=== PATIENT | male | born 1980 | race Caucasian/White ===

== ENCOUNTER 2020-08-23 07:19 | Observation (INO) ==
[2020-08-23] MEDS ORDERED: LORazepam 2 MG/4 ML VIAL IV STA ×3 (07:42→10:45)
[2020-08-23] MEDS ORDERED: MULTI-VITAMIN INFUSION 10 ML, THIAMINE HCL 100 MG, FOLIC ACID 1 MG in SODIUM CHLORIDE 0... IV ONE (07:42)
--- NOTE | 2020-08-23 07:48 | Emergency Department Note ---
Impression & Plan Pneumonia, Alcohol withdrawal syndrome ED Provider Note CHIEF COMPLAINT: Alcohol withdrawal HISTORY OF PRESENTING ILLNESS: This is a 39-year-old male who presents to the emergency department by private vehicle with complaint of alcohol withdrawal that started last night. Patient states that he has been shaking and was up all night vomiting. The patient was evaluated here yesterday and was noted to have an elevated alcohol level at that time of 464.1 mg/dL, and was also diagnosed with pneumonia at that time. Patient states they recommended he be admitted yesterday, but he did not want to stay, so he left against medical advice. He states that he "stopped drinking cold turkey" and he began to start feeling withdrawal symptoms late last evening. He reports his last drink was yesterday morning. He notes that he has a history of alcohol abuse but had been sober for about 3-1/2 years, he recently started drinking again about 3 weeks ago. He attributes his recent drinking to stress from the holidays and seeing frequent ads on TV about alcohol. He also reports a history of narcotic addiction and is on Suboxone, he has not missed any doses of his Suboxone. He denies any pain and rates his pain level 0/10. He denies chest pain, shortness of breath, abdominal pain, back pain, diarrhea, urinary complaints, numbness/tingling or weakness of the extremities. He was discharged home with Levaquin for the pneumonia and Librium. He states he tried to take the Librium, but he was vomiting and could not keep it down. REVIEW OF SYSTEMS: A complete 10 point review of systems was reviewed with the patient with pertinent positives and negatives as per [facility]. All else were negative. PAST MEDICAL HISTORY: History of alcohol abuse, history of narcotic addiction on Suboxone SOCIAL HISTORY: Lives at home, he is a current everyday smoker, history of alcoh ol and narcotic abuse ALLERGIES: No known allergies PHYSICAL EXAM: CONSTITUTIONAL: Alert, pleasant and cooperative. Nontoxic-appearing and in no acute distress. Appears anxious and tremulous. Mildly dehydrated. HEENT: Normocephalic, atraumatic. PERRL, EOMI. Pharynx normal. Tongue fasciculations. NECK: Supple, full active range of motion without discomfort. No cervical adenopathy. RESPIRATORY: Clear to auscultation bilaterally with no wheezing, crackles, rhonchi or stridor. Equal expansion bilaterally. CARDIOVASCULAR: Regular rate and rhythm with no murmurs, rubs or gallops. Normal peripheral perfusion. No edema. GASTROINTESTINAL: Soft, nontender, nondistended. No palpable masses or HSM. Bowel sounds present in all quadrants. No CVA tenderness bilaterally. MUSCULOSKELETAL: Full range of motion of all joints without discomfort. Passive tremors in the arms. No clonus or hyperreflexia. INTEGUMENTARY: No rash or other significant dermatologic conditions noted. NEUROLOGIC: Alert and oriented X 4 with normal affect. Cranial nerves II-XII grossly intact. No focal neurologic deficits noted. Normal strength and sensation in all 4 extremities. Normal speech. Normal gait observed. ED COURSE AND MEDICAL DECISION MAKING: CC: Patient presenting with complaint of alcohol withdrawal DIFFERENTIAL DIAGNOSIS: Includes, but not limited to alcohol withdrawal, anxiety, electrolyte imbalance, dehydration, delirium tremens, substance abuse, pneumonia, acute coronary syndrome, dysrhythmia, among others. INTERPRETATION OF LABS: Leukopenia, no anemia, thrombocytopenia (unchanged from baseline), mild hypokalemia, no other significant electrolyte abnormalities, normal renal function, elevated AST and ALT , normal T bili and alk phos, troponin within normal limits. UA negative for infection, 2+ protein. Acetaminophen and salicylate levels negative. Medical alcohol slightly e levated. EKG: Shows normal sinus rhythm with a rate of 70 bpm, normal intervals, T wave abnormalities in leads V2 and V3, no ST elevation or ST depression, no ectopy, no significant change when compared to previous EKG from 08/22/2020 by my interpretation. MEDICATION RECONCILIATION: I attest that I have personally reviewed the patient's current medication list. INITIAL VITAL SIGNS REVIEW: I reviewed the patient's initial vital signs and interpret them as follows: T: Afebrile; BP: Hypertensive; HR: Within normal limits; RR: Within normal limits; Pulse Ox: Within normal limits on room air. MDM SUMMARY: Patient was evaluated at bedside, history and physical exam performed. Patient is alert and oriented, in no acute distress, but appears anxious and is noted to be tremulous in the upper extremities. He denies any pain. He is afebrile and nontoxic-appearing. He is hypertensive. Alcohol withdrawal symptoms are noted on exam, 2 mg IV Ativan was ordered preventatively. Cardiac monitoring: An order was placed for continuous cardiac monitoring. The monitor shows a rate of 75 bpm with normal sinus rhythm. I did review the patient's chart and his ED visit from yesterday, noting that he was diagnosed with a left lower lobe pneumonia by CT, and also had a negative COVID-19 test yesterday. The patient was apparently requiring oxygen yesterday and was recommended to be admitted to the hospital, but he signed out AMA. Orders were placed for labs, UA, medical clearance labs including acetaminophen, salicylate, medical alcohol, and urine drug profile, EKG. 2 mg IV Ativan was ordered to treat the patient's withdrawal symptoms and he was also given a banana bag. The initial EKG performed by nursing was reading an acute STEMI, however this was not appreciated on review of the EKG myself and suspected to be due to poor waveform secondary to the patient's tremors. A repeat EKG was performed and does not show any signs of an acute STEMI. Patient was noted by nursing to become hypoxic on room air after receiving the Ativan, he was placed on 5 L nasal cannula with improvement in his oxygen saturation. The patient is not in any respiratory distress, he is not tachypneic or showing signs of labored breathing. Patient discussed with Dr. Ingram, who agrees with my assessment, plan, and disposition. Labs reviewed as above, labs are fairly unremarkable, though there is mild leukopenia, and also thrombocytopenia, which appears unchanged from previous labs. Medical alcohol level is significantly decreased from yesterday, consistent with the patient saying that he stopped drinking. I did discuss the patient with Robin Yu PA-C, [facility], who agrees to evaluate the patient for admission. Patient reassessed multiple times throughout ED stay, he has remained hemodynamically stable and tremors appear to be improving somewhat after the Ativan. The patient was updated on all results and plan for admission, he verbalized understanding was agreeable to this plan. The patient was stable at time of admission. The chart was completed utilizing [employer] Speech voice recognition software. Grammatical errors, random word insertions, pronoun errors, and incomplete sentences are an occasional consequence of this system due to software limitations, ambient noise, and hardware issues. Any formal questions or concerns about the content, text, or information contained within the body of this dictation should be directly addressed to the nurse practitioner for clarification. Past Med/Surg History Medical History (Updated 08/23/20 @ 15:26 by LISA Calderon) History of substance abuse Tobacco abuse Surgical History (Updated 08/23/20 @ 09:55 by Robin Yu PA-C) Surgical history unknown Family History (Updated 08/23/20 @ 09:56 by Robin Yu PA-C) Other Family history non-contributory Social History (Updated 08/23/20 @ 09:57 by Robin Yu PA-C) Smoking Status: Current every day smoker Tobacco Type: Cigarettes Cigarettes Per Day: 15; Tobacco Cessation Education Requested by Patient: No Hx Alcohol Use: Yes Preferred Language: Czech Communication Ability: Effective [employer] Required: No Beliefs That Will Affect Care: None Current Living Situation: Family Current Living Situation Comment: Pt is vague about home living situation. current occupational status: employed current occupation: [employer] How many Children do You have: 1 Feels Safe at Home: Yes Safety Concerns: Feels Safe At This Time Physical Activity Frequency: Daily Assistive Devices: Glasses Allergies Allergies Allergy/AdvReac Type Severity Reaction Status Date / Time No Known Allergies Allergy Unverified 08/23/20 08:29 Home Meds Home Medications Medication Instructions Recorded Confirmed buprenorphine-naloxone 1 film SUBLINGUAL BID 08/22/20 08/23/20 glucos sul [id number] 1 cap PO DAILY 08/22/20 08/23/20 [Glucosamine Chondroitin] omega [id number]-fish oil [Fish Oil] 1 cap PO DAILY 08/22/20 08/23/20 turmeric 400 mg PO DAILY 08/22/20 08/23/20 Previous Rx's Medication Instructions Recorded chlordiazepoxide HCl See Rx Instructions .ROUTE 08/22/20 .COMPLEX #7 cap chlordiazepoxide HCl See Rx Instructions .ROUTE 08/22/20 .COMPLEX #8 cap levofloxacin 500 mg PO DAILY 10 Days #10 tab 08/22/20 Results & Data (ED) Vital Signs Vital Signs - 24 hr 08/23/20 07:24 08/23/20 07:53 08/23/20 07:54 Temperature 37.0 C Temperature Source Temporal Artery Scan Pulse Rate 84 Pulse Rate [Left Finger] Respiratory Rate 20 Respiratory Depth Normal Blood Pressure 195/114 H Blood Pressure [Right Arm] Blood Pressure Mean 141 Blood Pressure Mean [Right Arm] Pulse Oximetry 94 84 L 94 Oxygen Delivery Method Room Air Room Air Nasal Cannula Oxygen Flow Rate 5 Sepsis Recent Fever Within 48 Hours No Sepsis New/Unexplained Change in Mental Status N/A Sepsis Action Taken by Nursing No Action Required 08/23/20 08:34 08/23/20 09:29 Temperature Temperature Source Pulse Rate Pulse Rate [Left Finger] 79 81 Respiratory Rate 16 24 Respiratory Depth Blood Pressure Blood Pressure [Right Arm] 162/96 H 176/93 H Blood Pressure Mean Blood Pressure Mean [Right Arm] 118 120 Pulse Oximetry 97 93 Oxygen Delivery Method Nasal Cannula Nasal Cannula Oxygen Flow Rate 4 5 Sepsis Recent Fever Within 48 Hours Sepsis New/Unexplained Change in Mental Status Sepsis Action Taken by Nursing Laboratory Data Result diagrams: 08/23/20 07:45 08/23/20 08:31 Lab Results 08/23/20 08/23/20 08/23/20 Range/Units 07:36 07:45 07:45 WBC 3.38 L (4.8-10.8) K/uL RBC 5.29 (4.7-6.1) M/uL Hgb 16.4 (14.0-18.0) g/dL Hct 49.7 (42-52) % MCV 94.0 (80-100) fL MCH 31.0 (25-34) pg MCHC 33.0 (32-36) g/dL RDW Std Deviation 49.3 H (36.4-46.3) fL RDW Coeff of Dale 14.2 (11.5-14.5) % Plt Count 62 L (130-400) K/uL MPV 11.3 H (7.4-10.4) fL Immature Gran % (Auto) 0.3 % Neut % (Auto) 48.8 % Lymph % (Auto) 39.6 % Mora % (Auto) 8.0 % Eos % (Auto) 1.2 % Baso % (Auto) 2.1 % Neut # (Auto) 1.65 (1.4-6.5) K/uL Lymph # (Auto) 1.34 (1.2-3.4) K/uL Mora # (Auto) 0.27 (0.11-0.59) K/uL Eos # (Auto) 0.04 (0-0.5) K/uL Baso # (Auto) 0.07 (0-0.2) K/uL Immature Gran # (Auto) 0.01 (0.00-0.02) K/uL Platelet Estimate Decreased L (Normal) Sodium Cancelled Potassium Cancelled Chloride Cancelled Carbon Dioxide Cancelled Anion Gap Cancelled BUN Cancelled Creatinine Cancelled Est Cr Clr Drug Dosing Cancelled Est GFR ( Amer) Cancelled Est GFR (Non-Af Amer) Cancelled BUN/Creatinine Ratio Cancelled Glucose Cancelled Calcium Cancelled Phosphorus (2.5-4.9) mg/dl Magnesium (1.8-2.4) mg/dl Total Bilirubin Cancelled AST Cancelled ALT Cancelled Alkaline Phosphatase Cancelled Troponin I Cancelled Total Protein Cancelled Albumin Cancelled Globulin Cancelled Albumin/Globulin Ratio Cancelled Procalcitonin (0-0.5) ng/ml Salicylates Cancelled Acetaminophen Cancelled Ethyl Alcohol mg/dL 08/23/20 08/23/20 08/23/20 Range/Units 07:45 08:31 08:31 WBC (4.8-10.8) K/uL RBC (4.7-6.1) M/uL Hgb (14.0-18.0) g/dL Hct (42-52) % MCV (80-100) fL MCH (25-34) pg MCHC (32-36) g/dL RDW Std Deviation (36.4-46.3) fL RDW Coeff of Dale (11.5-14.5) % Plt Count (130-400) K/uL MPV (7.4-10.4) fL Immature Gran % (Auto) % Neut % (Auto) % Lymph % (Auto) % Mora % (Auto) % Eos % (Auto) % Baso % (Auto) % Neut # (Auto) (1.4-6.5) K/uL Lymph # (Auto) (1.2-3.4) K/uL Mora # (Auto) (0.11-0.59) K/uL Eos # (Auto) (0-0.5) K/uL Baso # (Auto) (0-0.2) K/uL Immature Gran # (Auto) (0.00-0.02) K/uL Platelet Estimate (Normal) Sodium 142 Potassium 3.2 L Chloride 99 Carbon Dioxide 32 Anion Gap 11.0 BUN 9 Creatinine 0.53 L Est Cr Clr Drug Dosing 197.3 Est GFR ( Amer) > 150.0 Est GFR (Non-Af Amer) 132.4 BUN/Creatinine Ratio 16.1 Glucose 90 Calcium 8.1 L Phosphorus (2.5-4.9) mg/dl Magnesium (1.8-2.4) mg/dl Total Bilirubin 0.6 AST 230 H ALT 165 H Alkaline Phosphatase 86 Troponin I 0.025 Total Protein 7.1 Albumin 3.3 L Globulin 3.8 Albumin/Globulin Ratio 0.9 Procalcitonin (0-0.5) ng/ml Salicylates Acetaminophen Ethyl Alcohol mg/dL Cancelled 59.9 H 08/23/20 08/23/20 08/23/20 Range/Units 08:31 08:31 08:31 WBC (4.8-10.8) K/uL RBC (4.7-6.1) M/uL Hgb (14.0-18.0) g/dL Hct (42-52) % MCV (80-100) fL MCH (25-34) pg MCHC (32-36) g/dL RDW Std Deviation (36.4-46.3) fL RDW Coeff of Dale (11.5-14.5) % Plt Count (130-400) K/uL MPV (7.4-10.4) fL Immature Gran % (Auto) % Neut % (Auto) % Lymph % (Auto) % Mora % (Auto) % Eos % (Auto) % Baso % (Auto) % Neut # (Auto) (1.4-6.5) K/uL Lymph # (Auto) (1.2-3.4) K/uL Mora # (Auto) (0.11-0.59) K/uL Eos # (Auto) (0-0.5) K/uL Baso # (Auto) (0-0.2) K/uL Immature Gran # (Auto) (0.00-0.02) K/uL Platelet Estimate (Normal) Sodium Potassium Chloride Carbon Dioxide Anion Gap BUN Creatinine Est Cr Clr Drug Dosing Est GFR ( Amer) Est GFR (Non-Af Amer) BUN/Creatinine Ratio Glucose Calcium Phosphorus 3.2 (2.5-4.9) mg/dl Magnesium 1.0 L (1.8-2.4) mg/dl Total Bilirubin AST ALT Alkaline Phosphatase Troponin I Total Protein Albumin Globulin Albumin/Globulin Ratio Procalcitonin 0.12 (0-0.5) ng/ml Salicylates < 1.7 L Acetaminophen < 2 L Ethyl Alcohol mg/dL Administered Medications Folic Acid 1 mg/ Syringe 10 mls @ 5 mls/min IV QAM JEAN CARLOS Stop: 09/22/20 11:59 Last Admin: 08/23/20 13:07 Dose: 5 mls/min Documented by: [id number] Lorazepam (Ativan) 1 mg in 2 mls @ 2 mls/min IV UD PRN; Protocol PRN Reason: EtOH Withdrawl AWSS Score 6,7 Stop: 09/22/20 11:34 Last Admin: 08/23/20 13:39 Dose: 2 mls/min Documented by: [id number] Potassium Chloride/Sodium Chloride (Normal Saline W/20 Meq Kcl) 20 meq in 1,000 mls @ 125 mls/hr IV .Q8H JEAN CARLOS Stop: 09/22/20 11:59 Last Admin: 08/23/20 13:06 Dose: 70 mls/hr Documented by: [id number] Thiamine HCl 100 mg/ Syringe 10 mls @ 2 mls/min IV QAM [facility] Stop: 09/22/20 11:59 Last Admin: 08/23/20 13:07 Dose: 2 mls/min Documented by: [id number] Potassium Chloride (K Bakari / Wtr) 10 meq in 100 mls @ 100 mls/hr IV Q1H JEAN CARLOS; Protocol Stop: 08/23/20 18:29 Last Admin: 08/23/20 14:21 Dose: 70 mls/hr Documented by: [id number] Infusion: 08/23/20 14:21 Dose: 70 mls/hr Documented by: [id number] Admin: 08/23/20 13:06 Dose: 70 mls/hr Documented by: [id number] Multivitamins/Minerals (Cerovite Adv Formula Tab) 1 tab PO QAM [facility] Stop: 09/22/20 11:34 Last Admin: 08/23/20 13:08 Dose: 1 tab Documented by: [id number] Nicotine (Nicotine 21 Mg/24 Hr Tdsy) 21 mg TD QAM [facility] Stop: 09/22/20 11:34 Last Admin: 08/23/20 13:08 Dose: 21 mg Documented by: [id number] Discontinued Medications Albuterol (Albuterol Hfa 8 Gm Inhaler) 4 puffs INH NOW STA Stop: 08/23/20 08:21 Last Admin: 08/23/20 08:34 Dose: 4 puffs Documented by: [id number] Gabapentin (Gabapentin 600 Mg Tab) 1,200 mg PO NOW ONE Stop: 08/23/20 12:01 Last Admin: 08/23/20 13:08 Dose: 1,200 mg Documented by: [id number] Lorazepam (Ativan) 2 mg in 4 mls @ 4 mls/min IV NOW STA Stop: 08/23/20 07:43 Last Admin: 08/23/20 07:52 Dose: 4 mls/min Documented by: [id number] Multivitamins 10 ml/ Thiamine HCl 100 mg/ Folic Acid 1 mg/Sodium Chloride 1,011.2 mls @ 1,011.2 mls/hr IV .Q1H ONE Stop: 08/23/20 08:41 Last Infusion: 08/23/20 09:30 Dose: 0 mls/hr Documented by: [id number] Admin: 08/23/20 08:33 Dose: 1,011.2 mls/hr Documented by: [id number] Lorazepam (Ativan) 2 mg in 4 mls @ 4 mls/min IV NOW STA Stop: 08/23/20 09:21 Last Admin: 08/23/20 09:27 Dose: 4 mls/min Documented by: [id number] Lorazepam (Ativan) 2 mg in 4 mls @ 4 mls/min IV NOW STA Stop: 08/23/20 10:46 Last Admin: 08/23/20 10:53 Dose: 4 mls/min Documented by: [id number] Piperacillin Sod/Tazobactam (Sod 3.375 gm/ Dextrose) 115 mls @ 230 mls/hr IV NOW ONE; Protocol Stop: 08/23/20 12:59 Last Infusion: 08/23/20 13:37 Dose: 0 mls/hr Documented by: [id number] Admin: 08/23/20 13:07 Dose: 230 mls/hr Documented by: [id number] Discharge Plan Visit Data Chief Complaint: Illness Stated Complaint: SHAKING AND UP ALL NIGHT ED Provider: Al Ingram ED Midlevel Provider: Melina Bay Discharge Problem: Pneumonia, Alcohol withdrawal syndrome Patient Disposition: Admitted As Inpatient Discharge Instructions Interventions: ED Discharge Assessment Last Done: 08/23/20 11:03 Discharge Problem: Pneumonia Qualifiers: Pneumonia type: due to unspecified organism Laterality: left Lung location: lower lobe of lung Qualified Code(s): J18.9 - Pneumonia, unspecified organism Alcohol withdrawal syndrome Qualifiers: Complication of substance-induced condition: uncomplicated Qualified Code(s): F10.230 - Alcohol dependence with withdrawal, uncomplicated
[2020-08-23 08:15] LABS: Hematocrit (blood only) 49.7 % (42-52); Hemoglobin 16.4 g/dL (14.0-18.0); RDW Coefficient of Variation 14.2 % (11.5-14.5); RDW Standard Deviation 49.3 fL (36.4-46.3); Red Blood Count 5.29 M/uL (4.7-6.1); White Blood Count 3.38 K/uL (4.8-10.8)
[2020-08-23] MEDS ORDERED: ALBUTEROL HFA 8 GM INHALER INH STA (08:20)
[2020-08-23 08:52] LABS: Basophils # (auto) 0.07 K/uL (0-0.2); Basophils % (auto) 2.1 %; Eosinophils # (auto) 0.04 K/uL (0-0.5); Eosinophils % (auto) 1.2 %; Immature Granulocytes # (auto) 0.01 K/uL (0.00-0.02); Immature Granulocytes % (auto) 0.3 %; Lymphocytes # (auto) 1.34 K/uL (1.2-3.4); Lymphocytes % (auto) 39.6 %; Mean Platelet Volume 11.3 fL (7.4-10.4); Monocytes # (auto) 0.27 K/uL (0.11-0.59); Neutrophils # (auto) 1.65 K/uL (1.4-6.5); Neutrophils % (auto) 48.8 %; Platelet Count 62 K/uL (130-400); Platelet Estimate Decreased (Normal)
[2020-08-23 09:03] LABS: Alanine Aminotransferase 165 U/L (12-78); Albumin Level 3.3 gm/dl (3.4-5.0); Aspartate Aminotransferase 230 U/L (15-37); BUN Creatinine Ratio 16.1 (10-20); Blood Urea Nitrogen 9 mg/dl (7-18); Calcium 8.1 mg/dl (8.5-10.1); Carbon Dioxide 32 mmol/L (21-32); Chloride 99 mmol/L (98-107); Creatinine Clr Calc Pharmacy 197.3 ml/min; Est GFR (African American) > 150.0; Est GFR (Non-African American) 132.4; Glucose 90 mg/dl (70-99); Potassium 3.2 mmol/L (3.5-5.1); Sodium 142 mmol/L (136-145)
[2020-08-23 09:08] LABS: Albumin Globulin Ratio 0.9 (0.9-2); Alkaline Phosphatase 86 U/L (45-117); Bilirubin,Total 0.6 mg/dl (0.2-1); Globulin 3.8 gm/dl (2.5-4.0); Total Protein 7.1 gm/dl (6.4-8.2); Troponin I 0.025 ng/ml (0-0.045)
[2020-08-23 09:25] LABS: Acetaminophen < 2 ug/ml (10-30); Salicylate < 1.7 mg/dl (2.8-20)
--- NOTE | 2020-08-23 09:59 | History & Physical Report ---
Date of Service August 23, 2020 Assessment & Plan (1) Alcoholism: Impression: This is a 39-year-old male that has done inpatient rehab for alcohol abuse 3 times over the last several years. He has been abstinent from alcohol for 3 years. 3 weeks ago he thought he could have 1 dr vera. Since that time he is drinking approximately 750 mL of vodka daily. He presented to the emergency department for withdrawal and shortness of breath. He was found to have what appears to be a left lower lobe infiltrate and an active withdrawal. Will be admitted for alcohol withdrawal protocol and management of other issues. Patient will be started on AWSS protocol * As needed lorazepam * Librium * Gabapentin * Folic acid * Thiamine * Multivitamin Patient will be admitted to [facility] telemetry for monitoring Counseled against complete abstinence and explained pathophysiology of addiction (2) Pneumonia: Patient reports aspiration of vomit during withdrawal last night CT scan of the chest shows no evidence of pulmonary emboli but there is evidence of pneumonitis in the left lower lobe Patient was sent home from ED yesterday with levofloxacin Will start patient on IV Zosyn Supplemental oxygen as needed to maintain SaO2 greater than 90% (3) History of substance abuse: Abuse of prescription medications including narcotics and benzodiazepines in the past Currently on Suboxone * Continue while inpatient (4) Tobacco abuse: Patient smoked most of his adult life Discussed need for abstinence We will prescribe 21 mg NicoDerm patch (5) Thrombocytopenia: Patient unaware of any history of blood dyscrasias Currently platelet count is 62 and was 59 yesterday for his emergency room visit We will trend CBC with differential No active bleeding at this time (6) Hypokalemia: Potassium was 3.2 Will replete with oral as well as IV potassium chloride Follow serial lab Check magnesium level (7) Transaminitis: Most likely secondary to ethanol abuse Trend LFTs No abdominal pain No pain in right upper quadrant with palpation If no resolution may require ultrasound or CT scan (8) DVT prophylaxis: Thrombocytopenia with a platelet count of 62,000 Chemical prophylaxis with heparin 5000 units SQ every 12 hours Out of bed as tolerated with assistance Admission and Anticipated Discharge Date Admission Date: 08/23/2020 History of Present Illness Primary Care Provider: NO PCP Attending: Dr. Josue Guthrie This is a 39-year-old male that presents with alcohol withdrawal. He has a past medical history including tobacco abuse, narcotic dependence, benzodiazepine dependence. 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 He lifts weights on a regular basis and has been relatively healthy. 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 He is and has 1 daughter and returns to [place] every weekend. The patient has been an inpatient in a drug and alcohol rehab on 3 different occasions in the past. The patient states that he has been sober for the last 3 years. As result of Covid and increased advertising for alcohol he thought he could have 1 or 2 drinks and started drinking about 3 months ago. Since that time he has been drinking 1/5 of vodka daily. He presented to the emergency department yesterday and had what appeared to be pneumonia. He refused admission and was discharged home on levofloxacin and Librium. Once home he had a small amount of vodka left in the bottle and decided that he would drink it rather than waste it. This morning he presents with elevated ethanol levels, nausea, vomiting. He has some shortness of breath and hypoxia and was placed on 3 L of supplemental oxygen via nasal cannula. With the supplemental oxygen he was able to saturate in the mid 90s. He does have tremors and is noticeably agitated. He received 2 mg of Ativan IV on arrival and received another 2 mg IV at the time of my visit. He denies any chest pain or tightness. Initial EKG did show what appeared to be in a STEMI. Repeat EKG was normal. Troponin is currently pending. Patient smokes a little bit less than 1 pack of cigarettes daily. He is on Suboxone, fish oil, multivitamin daily. He lifts weights on a regular basis. He has had no other problems with hypertension, pulmonary disease. He was negative for COVID-19 yesterday. He has no prior positive results for Covid. The patient denies fever, sweats, rigors. He does have tremors and tachycardia. He is rather anxious. He is a good historian. He has no diarrhea. He has no other acute complaints at this time. Allergies Allergy/AdvReac Type Severity Reaction Status Date / Time No Known Allergies Allergy Unverified 08/23/20 08:29 Home Medications Medication Instructions Recorded Confirmed Type buprenorphine-naloxone 1 film SUBLINGUAL BID 08/22/20 08/23/20 History chlordiazepoxide HCl See Rx Instructions .ROUTE 08/22/20 08/23/20 Rx .COMPLEX #7 cap chlordiazepoxide HCl See Rx Instructions .ROUTE 08/22/20 08/23/20 Rx .COMPLEX #8 cap glucos sul [id number]-C-Mn 1 cap PO DAILY 08/22/20 08/23/20 History [Glucosamine Chondroitin] levofloxacin 500 mg PO DAILY 10 Days #10 tab 08/22/20 08/23/20 Rx omega 6-bwr-bnt-fish oil [Fish Oil] 1 cap PO DAILY 08/22/20 08/23/20 History turmeric 400 mg PO DAILY 08/22/20 08/23/20 History Past Med/Surg History Medical History (Updated 08/23/20 @ 10:49 by Robin Yu PA-C) History of substance abuse Tobacco abuse Surgical History (Updated 08/23/20 @ 09:55 by Robin Yu PA-C) Surgical history unknown Family History (Updated 08/23/20 @ 09:56 by Robin Yu PA-C) Other Family history non-contributory Social History (Updated 08/23/20 @ 09:57 by Robin Yu PA-C) Smoking Status: Current every day smoker Tobacco Type: Cigarettes Cigarettes Per Day: 15; Tobacco Cessation Education Requested by Patient: No Hx Alcohol Use: Yes Preferred Language: Nepalese Communication Ability: Effective Hospital Cna Required: No Beliefs That Will Affect Care: None Current Living Situation: Family Current Living Situation Comment: Pt is vague about home living situation. current occupational status: employed current occupation: [employer] How many Children do You have: 1 Feels Safe at Home: Yes Safety Concerns: Feels Safe At This Time Physical Activity Frequency: Daily Assistive Devices: Glasses Review of Systems Review of Systems: All systems reviewed & are unremarkable except as noted in HPI & below Physical Exam Physical Exam: GENERAL : No acute distress EYES: No icterus, gaze conjugate NOSE: No evidence of epistaxis MOUTH: No lesions or candidiasis NECK: Supple LUNGS: Decreased breath sounds at the left base. No wheezes, rales or rhonchi HEART: Regular, tachycardic. Normal sinus rhythm on monitor ABDOMEN: Soft, NT, ND, BS Present EXTREMITIES: No LE edema, pedal pulses intact NEURO: A&OX3 Results & Data Results & Data ([facility]) Vital Signs (Past 12 Hours) Vital Signs Temp Pulse Pulse Resp BP BP Pulse Ox 08/23/20 09:29 81 24 176/93 H 93 08/23/20 08:34 79 16 162/96 H 97 08/23/20 07:54 94 08/23/20 07:53 84 L 08/23/20 07:24 37.0 C 84 20 195/114 H 94 Laboratory Results 08/23/20 07:45 08/23/20 08:31 08/23/20 08/23/20 07:45 08:31 Troponin I Cancelled 0.[address] angio chest PE protocol CT DOSE: 426.29 mGy.cm HISTORY: 39 years-old Male with PE, hypoxia. Acute shortness of breath with hypoxia TECHNIQUE: Multiple CTA images of the chest were obtained after the intravenous administration of 120 ml Optiray 320. Coronal and sagittal MIPS were obtained from the axial data set and were submitted for review. All measurements were obtained according to NASCET criteria. A dose lowering technique was utilized adhering to the principles of ALARA. COMPARISON: Chest radiograph of same day FINDINGS: CTA: Mild cardiomegaly. No pericardial effusion. Mild coronary artery calcifications. The left heart structures are not well opacified and therefore are not well ev aluated. No thoracic aortic aneurysm. The pulmonary artery is opacified to level the subsegmental branches and demonstrates no filling defects to suggest thromboembolic disease. CT CHEST: Unremarkable thyroid. No pathologically enlarged lymph nodes. There is no pneumothorax or pleural effusion. There are patchy nodular consolidative and groundglass opacities noted bilaterally, most pronounced in the basal left lower lobe with mild associated bronchial wall thickening. Central airways are patent. Severe hepatic steatosis. Mild nonspecific distal esophageal wall thickening. Unremarkable soft tissues. No acute fracture. IMPRESSION: 1. Cardiomegaly without evidence of pulmonary thromboembolic disease. 2. Bronchial wall thickening with patchy groundglass and nodular consolidative opacities, most pronounced within the left lower lobe are suggestive of bronchopneumonia. 3. Severe hepatic steatosis. Electronically signed by: Keegan Narayan M.D. 08/22/2020 2:15 PM Medications Administered Ativan (Lorazepam) 6mg IVP in the ED from admission to 10:45am Code Status & VTE Plan Code Status Level 1: Full resuscitation VTE Prophylaxis Plan VTE Prophylaxis will be ordered: Yes Supervising Physician Co-Signing Physician Notes I supervised Robin Yu PA-C on this admission. I interviewed and examined the patient independently of him. The plan is as written in his note except for any following changes/exceptions: None Patient seen and examined today. Much more comfortable after Ativan IV in the ED. No major withdrawal symptoms during my interview. Will help cover withdrawal symptoms, replete with fluids, cover for aspiration, and follow clinically. PG Care Time/CCT Total # of Minutes Spent Total Time Spent with Patient: Total time spent is greater than 50% in coordination of care (as documented) at patient's floor/unit and/or counseling patient: 65 minutes Coding Level of Care Code 19060 Initial Inpt Care Lvl 3 Diagnoses Alcoholism F10.20 Pneumonia J18.9 Laterality: left Lung location: lower lobe of lung Pneumonia type: due to unspecified organism History of substance abuse F19.11 Tobacco abuse Z72.0 Thrombocytopenia D69.6 Hypokalemia E87.6 Transaminitis R74.01 DVT prophylaxis Z29.9 Time Spent (min) 65 (1) Pneumonia Laterality: left Lung location: lower lobe of lung Pneumonia type: due to unspecified organism Qualified Code(s): J18.9 - Pneumonia, unspecified organism
[2020-08-23 10:52] LABS: Phosphorus 3.2 mg/dl (2.5-4.9)
[2020-08-23] MEDS ORDERED: ACETAMINOPHEN 325 MG TAB PO PRN (11:35)
[2020-08-23] MEDS ORDERED: PIPERACILL/TAZOBAC CONSULT ACTIVE PRN (11:35)
[2020-08-23] MEDS ORDERED: LORazepam 3 MG/6 ML VIAL IV PRN (11:35)
[2020-08-23] MEDS ORDERED: GABAPENTIN 1200MG ALCOHOL WITHDRAWAL LOAD PO STA (11:35)
[2020-08-23] MEDS ORDERED: POLYETHYLENE (MIRALAX) 17 GM PACK PO PRN (11:35)
[2020-08-23] MEDS ORDERED: ATIVAN IV ALCOHOL WITHDRAWL IV PRN (11:35)
[2020-08-23] MEDS ORDERED: GABAPENTIN 600 MG TAB PO ONE (12:00)
[2020-08-23] MEDS ORDERED: PIPERACILLIN/TAZOBACTAM 3.375 GM in DEXTROSE 5% 100 ML IV ONE (12:30)
[2020-08-23] MEDS: POTASSIUM CHLORIDE / WTR 10 MEQ/100 ML PLCT IV SCH ×6 (13:06→20:11)
[2020-08-23] MEDS: NSS + 20MEQ KCL 20 MEQ/1,000 ML BAG IV SCH (13:06)
[2020-08-23] MEDS: THIAMINE HCL 100 MG in SYRINGE 9 ML IV SCH (13:07)
[2020-08-23] MEDS: FOLIC ACID 1 MG in SYRINGE 9.8 ML IV SCH (13:07)
[2020-08-23] MEDS: CEROVITE ADV FORMULA TAB PO SCH (13:08)
[2020-08-23] MEDS: NICOTINE 21 MG/24 HR TDSY TD SCH (13:08)
[2020-08-23 13:21] LABS: Appearance Urine Clear (Clear); Bacteria Urine Automated Negative (Negative); Bilirubin Urine Negative (Negative); Blood Urine Negative (Negative); Cast Urine Automated 0 /lpf (0-5); Color Urine Dark Yellow; Glucose Urine UA Negative (Negative); Ketones Urine Negative (Negative); Leukocyte Esterase Urine Trace (Negative); Nitrite Urine Negative (Negative); Protein Urine 2+ (Negative); Specific Gravity Urine 1.022 (1.000-1.030); Urobilinogen Urine Negative (Negative); pH Urine 6.5 (4.5-7.5)
[2020-08-23] MEDS: LORazepam 1 MG/2 ML VIAL IV PRN ×2 (13:39→16:13)
[2020-08-23 13:45] LABS: Amphetamines+Metham, Urine Neg (Neg); Barbiturates, Urine Neg (Neg); Benzodiazepine, Urine Pos (Neg); Cocaine, Urine Neg (Neg); MDMA (Ecstacy), Urine Neg (Neg); Methadone, Urine Neg (Neg); Opiate, Urine Pos (Neg); Phencyclidine, Urine Neg (Neg)
--- NOTE | 2020-08-23 17:06 | Electrocardiogram Report ---
Test Reason : Blood Pressure : / mmHG Vent. Rate : 071 BPM Atrial Rate : 071 BPM P-R Int : 140 ms QRS Dur : 102 ms QT Int : 458 ms P-R-T Axes : 026 058 053 degrees QTc Int : 497 ms Poor data quality, interpretation may be adversely affected Normal sinus rhythm Normal ECG When compared with ECG of 22-AUG-2020 11:33, Borderline Criteria for Anteroseptal infarct no longer present Confirmed by Darek Perrin ([id number]) on 08/23/2020 5:06:19 PM Referred By: Confirmed By:Darek Perrin
--- NOTE | 2020-08-23 17:08 | Electrocardiogram Report ---
Test Reason : Blood Pressure : / mmHG Vent. Rate : 070 BPM Atrial Rate : 070 BPM P-R Int : 144 ms QRS Dur : 102 ms QT Int : 436 ms P-R-T Axes : -09 050 053 degrees QTc Int : 470 ms Normal sinus rhythm Nonspecific T wave abnormality Anteroseptal leads Abnormal ECG When compared with ECG of 23-AUG-2020 07:54, No significant change was found Confirmed by Darek Perrin ([id number]) on 08/23/2020 5:07:37 PM Referred By: REFERRED SELF Confirmed By:Darek Perrin
[2020-08-23] MEDS: GABAPENTIN 600 MG TAB PO SCH (17:21)
[2020-08-23] MEDS: PIPERACILLIN/TAZOBACTAM 3.375 GM in DEXTROSE 5% 100 ML IV SCH (17:23)
[2020-08-23] MEDS: HEPARIN SOD 5,000 UNIT/0.5 ML VIAL SQ SCH (21:13)
[2020-08-23] MEDS: BUPRENORPHINE/NALOXONE 8/2 MG TAB SL SCH (21:26)
[2020-08-24] MEDS: GABAPENTIN 600 MG TAB PO SCH ×3 (00:16→15:41)
[2020-08-24] MEDS: LORazepam 1 MG/2 ML VIAL IV PRN (00:33)
[2020-08-24] MEDS: PIPERACILLIN/TAZOBACTAM 3.375 GM in DEXTROSE 5% 100 ML IV SCH ×3 (01:32→17:55)
[2020-08-24] MEDS: NSS + 20MEQ KCL 20 MEQ/1,000 ML BAG IV SCH ×3 (01:32→16:57)
[2020-08-24 06:30] LABS: Hematocrit (blood only) 47.7 % (42-52); Hemoglobin 15.5 g/dL (14.0-18.0); Mean Corpuscular Hemoglobin 30.7 pg (25-34); Mean Corpuscular Hgb Conc 32.5 g/dL (32-36); Mean Corpuscular Volume 94.5 fL (80-100); RDW Coefficient of Variation 13.8 % (11.5-14.5); RDW Standard Deviation 47.6 fL (36.4-46.3); Red Blood Count 5.05 M/uL (4.7-6.1); White Blood Count 3.68 K/uL (4.8-10.8)
[2020-08-24 06:43] LABS: Mean Platelet Volume 11.1 fL (7.4-10.4); Platelet Count 48 K/uL (130-400)
[2020-08-24 06:55] LABS: Basophils # (auto) 0.02 K/uL (0-0.2); Basophils % (auto) 0.5 %; Eosinophils # (auto) 0.12 K/uL (0-0.5); Eosinophils % (auto) 3.3 %; Immature Granulocytes # (auto) 0.02 K/uL (0.00-0.02); Immature Granulocytes % (auto) 0.5 %; Lymphocytes # (auto) 0.87 K/uL (1.2-3.4); Lymphocytes % (auto) 23.6 %; Monocytes # (auto) 0.35 K/uL (0.11-0.59); Monocytes % (auto) 9.5 %; Neutrophils % (auto) 62.6 %; RBC Morphology Unremarkable
[2020-08-24 07:06] LABS: Albumin Level 3.3 gm/dl (3.4-5.0); BUN Creatinine Ratio 18.6 (10-20); Calcium 8.7 mg/dl (8.5-10.1); Est GFR (African American) 142.9; Est GFR (Non-African American) 123.3; Magnesium 1.1 mg/dl (1.8-2.4); Potassium 3.6 mmol/L (3.5-5.1)
[2020-08-24 07:15] LABS: Albumin Globulin Ratio 0.9 (0.9-2); Globulin 3.9 gm/dl (2.5-4.0); Phosphorus 3.8 mg/dl (2.5-4.9); Total Protein 7.2 gm/dl (6.4-8.2)
[2020-08-24] MEDS: LORazepam 2 MG/4 ML VIAL IV PRN ×2 (07:23→11:30)
[2020-08-24] MEDS: FOLIC ACID 1 MG in SYRINGE 9.8 ML IV SCH (07:32)
[2020-08-24] MEDS: CEROVITE ADV FORMULA TAB PO SCH (07:32)
[2020-08-24] MEDS: HEPARIN SOD 5,000 UNIT/0.5 ML VIAL SQ SCH ×2 (07:32→20:03)
[2020-08-24] MEDS: NICOTINE 21 MG/24 HR TDSY TD SCH (07:32)
[2020-08-24] MEDS: THIAMINE HCL 100 MG in SYRINGE 9 ML IV SCH (07:32)
--- NOTE | 2020-08-24 09:26 | Electrocardiogram Report ---
Test Reason : Blood Pressure : / mmHG Vent. Rate : 079 BPM Atrial Rate : 079 BPM P-R Int : 150 ms QRS Dur : 104 ms QT Int : 404 ms P-R-T Axes : 038 063 047 degrees QTc Int : 463 ms Normal sinus rhythm Minimal voltage criteria for LVH, may be normal variant ( Joe product ) Septal infarct , age undetermined Abnormal ECG When compared with ECG of 23-AUG-2020 08:13, ST elevation now present in Anterior leads T wave inversion no longer evident in Anterior leads Confirmed by Darek Perrin ([id number]) on 08/24/2020 9:25:32 AM Referred By: REFERRED SELF Confirmed By:Darek Perrin
[2020-08-24] MEDS: BUPRENORPHINE/NALOXONE 8/2 MG TAB SL SCH ×2 (09:28→20:03)
--- NOTE | 2020-08-24 12:49 | Hospitalist Progress Note ---
Date of Service August 24, 2020 Assessment & Plan (1) Alcoholism: Patient will be started on AWSS protocol. * As needed lorazepam * Gabapentin * Folic acid * Thiamine * Multivitamin - Improving today. Mild tremors. (2) Pneumonia: Patient reports aspiration of vomit during withdrawal prior to admission. CT scan of the chest shows no evidence of pulmonary emboli but there is evidence of pneumonitis in the left lower lobe. - Continue Zosyn (3) History of substance abuse: Abuse of prescription medications including narcotics and benzodiazepines in the past. Currently on Suboxone. * Continue while inpatient (4) Tobacco abuse: Patient smoked most of his adult life. Discussed need for abstinence. - Continue NicoDerm patch (5) Thrombocytopenia: Patient unaware of any history of blood dyscrasias. - Currently platelet count is 62 and was 59 yesterday for his emergency room visit. - No active bleeding at this time - Down to 48 today. Likely from alcohol suppression of bone marrow, but other etiologies such as ITP or splenic sequestration possible. Consumptive process such as DIC/TTP or other are unlikely given clinical picture. (6) Transaminitis: Most likely secondary to ethanol abuse. AST/ALT were 320/200 on admission. - Trend LFTs - Improved on 08/24 to 150/140. (7) DVT prophylaxis: Heparin 5000 units SQ every 12 hours Admission and Anticipated Discharge Date Admission Date: August 23, 2020 Subjective Feels he is "out of the mckinney" with his alcohol withdrawal, though he does have continue tremor. Reports no fevers/chills, chest pain, shortness of breath, abdominal pain, nausea, or vomiting. Physical Exam Constitutional: WD/WN, vitals as above Eyes: EOM intact bilaterally; no conjunctival abnormality ENMT: external ear and nose normal, oropharynx normal Neck: trachea midline, no thyromegaly normal visual inspection Respiratory: normal respiratory effort, lungs clear to auscultation no respiratory distress Cardiovascular: RRR, no murmur, no edema Gastrointestinal (Abdomen): Inspection/Auscultation: abdomen normal to inspection; abdomen not distended Musculoskeletal: no cyanosis or clubbing, extremities motor strength 5/5 Skin: no rashes, warm and dry Neurologic: moves all extremities and awake Psychiatric: Orientation: alert, oriented to person and cooperative Results & Data Results & Data ([facility]) Vital Signs (Past 12 Hours) Vital Signs Temp Pulse Pulse Resp BP Pulse Ox 08/24/20 11:12 36.8 C 91 H 18 174/113 H 91 08/24/20 09:58 169/95 H 08/24/20 08:30 169/97 H 08/24/20 08:00 77 08/24/20 07:40 163/110 H 08/24/20 07:12 36.7 C 77 18 180/116 H 90 08/24/20 03:55 37.0 C 77 18 171/98 H 92 08/24/20 01:42 82 PG Care Time/CCT Total # of Minutes Spent Total Time Spent with Patient: Total time spent is greater than 50% in coordination of care (as documented) at patient's floor/unit and/or counseling patient: Coding Level of Care Code 61695 Subseq Hosp Care Lvl 3 Diagnoses Alcoholism F10.20 Pneumonia J18.9 Laterality: left Lung location: lower lobe of lung Pneumonia type: due to unspecified organism History of substance abuse F19.11 Tobacco abuse Z72.0 Thrombocytopenia D69.6 Transaminitis R74.01 DVT prophylaxis Z29.9 (1) Pneumonia Laterality: left Lung location: lower lobe of lung Pneumonia type: due to unspecified organism Qualified Code(s): J18.9 - Pneumonia, unspecified organism
[2020-08-24] MEDS ORDERED: Nursing to Pharmacy Communication SCH (17:15)
[2020-08-24] MEDS ORDERED: MELATONIN 3 MG TAB PO PRN (21:21)
[2020-08-25] MEDS: NSS + 20MEQ KCL 20 MEQ/1,000 ML BAG IV SCH (00:17)
[2020-08-25] MEDS: GABAPENTIN 600 MG TAB PO SCH (00:17)
[2020-08-25] MEDS: PIPERACILLIN/TAZOBACTAM 3.375 GM in DEXTROSE 5% 100 ML IV SCH (02:43)
[2020-08-25 05:52] LABS: Hematocrit (blood only) 47.6 % (42-52); Hemoglobin 15.6 g/dL (14.0-18.0); Mean Corpuscular Hemoglobin 30.4 pg (25-34); Mean Corpuscular Hgb Conc 32.8 g/dL (32-36); Mean Corpuscular Volume 92.8 fL (80-100); RDW Coefficient of Variation 13.7 % (11.5-14.5); RDW Standard Deviation 46.7 fL (36.4-46.3); Red Blood Count 5.13 M/uL (4.7-6.1)
[2020-08-25 06:01] LABS: Mean Platelet Volume 11.4 fL (7.4-10.4); Platelet Count 44 K/uL (130-400)
[2020-08-25 06:16] LABS: Basophils # (auto) 0.03 K/uL (0-0.2); Basophils % (auto) 0.8 %; Eosinophils # (auto) 0.25 K/uL (0-0.5); Eosinophils % (auto) 6.4 %; Giant Platelets 3+; Immature Granulocytes # (auto) 0.02 K/uL (0.00-0.02); Immature Granulocytes % (auto) 0.5 %; Lymphocytes # (auto) 1.07 K/uL (1.2-3.4); Lymphocytes % (auto) 27.4 %; Monocytes # (auto) 0.33 K/uL (0.11-0.59); Monocytes % (auto) 8.5 %; Neutrophils % (auto) 56.4 %
[2020-08-25 06:55] LABS: Albumin Globulin Ratio 0.8 (0.9-2); Albumin Level 3.1 gm/dl (3.4-5.0); BUN Creatinine Ratio 16.2 (10-20); Calcium 8.9 mg/dl (8.5-10.1); Creatinine Clr Calc Pharmacy 168.7 ml/min; Est GFR (African American) 143.8; Est GFR (Non-African American) 124.1; Globulin 3.8 gm/dl (2.5-4.0); Phosphorus 3.8 mg/dl (2.5-4.9); Total Protein 6.9 gm/dl (6.4-8.2)
[2020-08-25] MEDS: THIAMINE HCL 100 MG in SYRINGE 9 ML IV SCH (08:16)
[2020-08-25] MEDS: NICOTINE 21 MG/24 HR TDSY TD SCH (08:16)
[2020-08-25] MEDS: FOLIC ACID 1 MG in SYRINGE 9.8 ML IV SCH (08:16)
[2020-08-25] MEDS: HEPARIN SOD 5,000 UNIT/0.5 ML VIAL SQ SCH (08:17)
[2020-08-25] MEDS: BUPRENORPHINE/NALOXONE 8/2 MG TAB SL SCH (08:20)
[2020-08-25 08:35] LABS: Potassium 3.2 mmol/L (3.5-5.1)
[2020-08-25 08:40] LABS: Magnesium 1.1 mg/dl (1.8-2.4)
[2020-08-25] MEDS: CEROVITE ADV FORMULA TAB PO SCH (10:28)
[2020-08-25] MEDS ORDERED: GABAPENTIN 600 MG TAB PO SCH (12:00)
--- NOTE | 2020-08-25 14:25 | Discharge Summary ---
Date of Service August 25, 2020 Admission HPI Per Admitting Provider Attending: Dr. Josue Guthrie This is a 39-year-old male that presents with alcohol withdrawal. He has a past medical history including tobacco abuse, narcotic dependence, benzodiazepine dependence. 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 He lifts weights on a regular basis and has been relatively healthy. 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 He is and has 1 daughter and returns to [place] every weekend. The patient has been an inpatient in a drug and alcohol rehab on 3 different occasions in the past. The patient states that he has been sober for the last 3 years. As result of Covid and increased advertising for alcohol he thought he could have 1 or 2 drinks and started drinking about 3 months ago. Since that time he has been drinking 1/5 of vodka daily. He presented to the emergency department yesterday and had what appeared to be pneumonia. He refused admission and was discharged home on levofloxacin and Librium. Once home he had a small amount of vodka left in the bottle and decided that he would drink it rather than waste it. This morning he presents with elevated ethanol levels, nausea, vomiting. He has some shortness of breath and hypoxia and was placed on 3 L of supplemental oxygen via nasal cannula. With the supplemental oxygen he was able to saturate in the mid 90s. He does have tremors and is noticeably agitated. He received 2 mg of Ativan IV on arrival and received another 2 mg IV at the time of my visit. He denies any ch est pain or tightness. Initial EKG did show what appeared to be in a STEMI. Repeat EKG was normal. Troponin is currently pending. Patient smokes a little bit less than 1 pack of cigarettes daily. He is on Suboxone, fish oil, multivitamin daily. He lifts weights on a regular basis. He has had no other problems with hypertension, pulmonary disease. He was negative for COVID-19 yesterday. He has no prior positive results for Covid. The patient denies fever, sweats, rigors. He does have tremors and tachycardia. He is rather anxious. He is a good historian. He has no diarrhea. He has no other acute complaints at this time. Principal Diagnosis Alcohol withdrawal Aspiration pneumonia Discharge Exam Constitutional WD/WN, vitals as above Eyes EOM intact bilaterally; no conjunctival abnormality ENMT external ear and nose normal, oropharynx normal Neck trachea midline, no thyromegaly normal visual inspection Respiratory normal respiratory effort, lungs clear to auscultation no respiratory distress Cardiovascular RRR, no murmur, no edema Gastrointestinal (Abdomen) Inspection/Auscultation: abdomen normal to inspection; abdomen not distended Musculoskeletal no cyanosis or clubbing, extremities motor strength 5/5 Skin no rashes, warm and dry Neurologic moves all extremities and awake Psychiatric Orientation: alert, oriented to person and cooperative Discharge Data Allergies Allergy/AdvReac Type Severity Reaction Status Date / Time No Known Allergies Allergy Unverified 08/23/20 08:29 Consultations 08/23/20 09:06 ED Decision to Admit Stat Hospital Course (1) Alcoholism: Patient will be started on AWSS protocol. * As needed lorazepam * Gabapentin * Folic acid * Thiamine * Multivitamin - Largely resolved today. Mild tremors. Wanted to be discharged, so sent home on last 2 doses of gabapentin taper. Encouraged to have total cessation. (2) Pneumonia: Patient reports aspiration of vomit during withdrawal prior to admission. CT scan of the chest shows no evidence of pulmonary emboli but there is evidence of pneumonitis in the left lower lobe. - Continued Zosyn inpatient - Discharged on Augmentin x 3 more days. (3) History of substance abuse: Abuse of prescription medications including narcotics and benzodiazepines in the past. Currently on Suboxone. * Continue while inpatient (4) Tobacco abuse: Patient smoked most of his adult life. Discussed need for abstinence. - Continue NicoDerm patch (5) Thrombocytopenia: Patient unaware of any history of blood dyscrasias. - Currently platelet count is 62 and was 59 yesterday for his emergency room visit. - No active bleeding at this time - Down to 44 today. Likely from alcohol suppression of bone marrow, but other etiologies such as ITP or splenic sequestration possible. Consumptive process such as DIC/TTP or other are unlikely given clinical picture. - Will need follow up in 1-2 weeks after cessation of alcohol. (6) Transaminitis: Most likely secondary to ethanol abuse. AST/ALT were 320/200 on admission. - Trend LFTs - Improved on 08/24 to 150/140. (7) DVT prophylaxis: Heparin 5000 units SQ every 12 hours Total Time Total Time Spent Total Time Spent (In Minutes): 35 Discharge Plan Discharge Items Patient Disposition: Home - Self-Care Reason For Visit: ETOH WITHDRAWAL Discharge Diagnosis: Alcohol withdrawal Pneumonia Activity: Resume your previous activity Non-emergency contact: Primary Care Provider Call non-emergency contact if: your symptoms worsen Follow-up/Referrals: PCP,NO [Primary Care Provider] - Diet: Regular Addtl Attending Provider Instructions: Please do not drink alcohol, as you have an addiction and I do not think you will be able to drink in moderation. This is a genetic issue and part of who you are. Please finish the gabapentin by taking a dose tonight, then a dose tomorrow morning. Then you are finished. Please take the antibiotic twice a day for 3 more days. This antibiotic will help kill any bacteria in your lungs from your vomiting. Pending Studies at Discharge: No Stand-Alone Forms: My [facility], Smoking Cessation Medications and DC Order Prescriptions: New gabapentin 600 mg Tablet 600 mg PO Q12H Qty: 2 RF: 0 amoxicillin-pot clavulanate [Augmentin] 875-125 mg tablet 1 tab PO BID Qty: 7 RF: 0 Continued buprenorphine-naloxone 8-2 mg film 1 film sublingual BID RF: 0 turmeric 400 mg Capsule 400 mg PO DAILY RF: 0 Glucosamine Chondroitin 550-30-1 mg Capsule 1 cap PO DAILY RF: 0 Discontinued omega 7-xiv-yvo-fish oil [Fish Oil] 1,000 mg (120 mg-180 mg) Capsule 1 cap PO DAILY RF: 0 levofloxacin 500 mg tablet 500 mg PO DAILY 10 Days Qty: 10 RF: 0 chlordiazepoxide HCl 25 mg capsule See Rx Instructions .ROUTE .COMPLEX Qty: 7 RF: 0 chlordiazepoxide HCl 5 mg capsule See Rx Instructions .ROUTE .COMPLEX Qty: 8 RF: 0 Discharge Orders: Discharge Order (Routine); Ordered 08/25/20 Ordered By: Josue Guthrie Admission Data Admit Date/Time: 08/23/20 09:43 Attending Provider: Josue Guthrie Admit Provider: Josue Guthrie Primary Care Provider: PCP,NO Other Providers: Josue Guthrie Other Interventions: Discharge Summary Assessment (RN) Last Done: 08/25/20 09:23 Coding Level of Care Code D/C Day Management >30 mins Diagnoses Alcoholism F10.20 Pneumonia J18.9 Laterality: left Lung location: lower lobe of lung Pneumonia type: due to unspecified organism History of substance abuse F19.11 Tobacco abuse Z72.0 Thrombocytopenia D69.6 Transaminitis R74.01 DVT prophylaxis Z29.9
[2020-08-27] MEDS ORDERED: GABAPENTIN 600 MG TAB PO SCH (22:00)
[2020-08-28 12:23] LABS: 7-Aminoclonaz, Confirm NEGATIVE ng/mL (<25); Codeine Urine NEGATIVE ng/mL (<50); Hydro-Alp Ur, GC/MS NEGATIVE ng/mL (<25); Hydrocodone Urine NEGATIVE ng/mL (<50); Hydromor Urine NEGATIVE ng/mL (<50); Hydroxyethylflurazepam, Conf NEGATIVE ng/mL (<50); Hydroxymidazolam Ur, GC/MS NEGATIVE ng/mL (<50); Hydroxytriazolam NEGATIVE ng/mL (<50); Lorazepam, Ur GC/MS 1110 ng/mL (<50); Morphine Urine NEGATIVE ng/mL (<50); Nordiazepam, Confirm NEGATIVE ng/mL (<50); Norhydrocodone Conf Ur NEGATIVE ng/mL (<50); Noroxycodone Urine NEGATIVE ng/mL (<50); Oxazepam Ur, GC/MS NEGATIVE ng/mL (<50); Oxycodone Urine NEGATIVE ng/mL (<50); Oxymorph Urine NEGATIVE ng/mL (<50); Temazepam, Confirm NEGATIVE ng/mL (<50)
== END 2020-08-25 10:29 | disposition home or self-care (01) | DRG 896 ==
LOC: ED 07:19 → 2N 09:43 → INTOOBSV 09:43 → 2N 11:03

== ENCOUNTER 2021-04-04 19:35 | Inpatient (IN) ==
[2021-04-04] MEDS ORDERED: LORazepam 2 MG/4 ML VIAL IV STA (20:19)
[2021-04-04] MEDS ORDERED: MULTI-VITAMIN INFUSION 10 ML, THIAMINE HCL 100 MG, FOLIC ACID 1 MG in SODIUM CHLORIDE 0... IV ONE (20:19)
[2021-04-04] MEDS ORDERED: GABAPENTIN 600 MG TAB PO ONE (20:20)
[2021-04-04] MEDS ORDERED: GABAPENTIN 1200MG ALCOHOL WITHDRAWAL LOAD PO STA (20:20)
[2021-04-04 20:37] LABS: Hematocrit (blood only) 51.2 % (42-52); Hemoglobin 17.2 g/dL (14.0-18.0); Mean Corpuscular Hgb Conc 33.6 g/dL (32-36); Mean Corpuscular Volume 92.4 fL (80-100); Mean Platelet Volume 10.7 fL (7.4-10.4); Platelet Count 45 K/uL (130-400); RDW Coefficient of Variation 14.9 % (11.5-14.5); RDW Standard Deviation 50.7 fL (36.4-46.3); Red Blood Count 5.54 M/uL (4.7-6.1); White Blood Count 2.33 K/uL (4.8-10.8)
[2021-04-04 20:53] LABS: Basophils # (auto) 0.17 K/uL (0-0.2); Basophils % (auto) 7.3 %; Eosinophils # (auto) 0.05 K/uL (0-0.5); Eosinophils % (auto) 2.1 %; Immature Granulocytes # (auto) 0.01 K/uL (0.00-0.02); Immature Granulocytes % (auto) 0.4 %; Lymphocytes # (auto) 1.09 K/uL (1.2-3.4); Lymphocytes % (auto) 46.8 %; Monocytes # (auto) 0.23 K/uL (0.11-0.59); Monocytes % (auto) 9.9 %; Neutrophils # (auto) 0.78 K/uL (1.4-6.5); Neutrophils % (auto) 33.5 %
--- NOTE | 2021-04-04 20:55 | XRay Report ---
XR chest 1V portable HISTORY: 40 years-old Male ? Aspiration acute shortness of breath COMPARISON: Chest radiograph and CTA chest 08/22/2020 TECHNIQUE: Portable AP view of the chest FINDINGS: Cardiomediastinal and hilar silhouettes are within normal limits. No pneumothorax, pleural effusion, airspace elevation or overt pulmonary edema. Bones of the chest intact. IMPRESSION: No acute process. ACT 112: Negative or not required by law. The above report was generated using voice recognition software. It may contain grammatical, syntax o r spelling errors. Electronically signed by: Cal Narayan M.D. 04/04/2021 8:54 PM
[2021-04-04 21:07] LABS: Alanine Aminotransferase 122 U/L (12-78); Albumin Globulin Ratio 0.9 (0.9-2); Albumin Level 3.7 gm/dl (3.4-5.0); Alkaline Phosphatase 128 U/L (45-117); BUN Creatinine Ratio 10.8 (10-20); Bilirubin,Total 0.8 mg/dl (0.2-1); Blood Urea Nitrogen 6 mg/dl (7-18); Calcium 8.3 mg/dl (8.5-10.1); Carbon Dioxide 30 mmol/L (21-32); Chloride 102 mmol/L (98-107); Creatinine Clr Calc Pharmacy 183.4 ml/min; Est GFR (African American) > 150.0 ml/min; Est GFR (Non-African American) 131.4 ml/min; Globulin 4.3 gm/dl (2.5-4.0); Glucose 102 mg/dl (70-99); Sodium 140 mmol/L (136-145)
[2021-04-04 21:43] LABS: Potassium 3.6 mmol/L (3.5-5.1)
--- NOTE | 2021-04-04 21:52 | History & Physical Report ---
Date of Service April 04, 2021 Assessment & Plan (1) Alcohol intoxication: Plan: Chance is a 40 yo male with a history of alcohol use disorder as well as other substance misuse who is being admitted for acute alcohol intoxication and anticipated withdrawal management. - medical eoth level 472 - banana bag x 1 in ED - nivia augustinen (2) Alcohol withdrawal syndrome: Plan: - AWSS protocol with oral ativan and gabapentin taper - although patient has been on Librium during previous admissions, he expresses a desire for inpatient rehab placement following hospital discharge - Thiamine 100 mg p.o. every morning. - Folic acid 1 mg p.o. every morning - seizure precautions (given history of withdrawal seizures) (3) Transaminitis: Plan: - AST at 306, ALT at 122 - suspect secondary to alcohol ingestion - avoid acetaminophen use - trend CMP (4) Thrombocytopenia: Plan: - platelets at 45k/ul - suspect secondary to alcohol suppressing bone marrow - peripheral smear ordered - assess for platelet clumping - trend CBC - transfuse if less than 20k/ul (5) Leukopenia: Plan: - WBC at 2.33 - ANC at 708 - peripheral smear ordered - HIV testing ordered - suspect secondary to alcohol suppressing bone marrow - neutropenic precautions (6) History of substance abuse: Plan: - patient has been on suboxone in the past - PDMP reviewed - his explanation of spacing out his current script appears to be accurate with fill history - will restart suboxone while inpatient - before discharge, arrange follow up with outpatient suboxone clinic locally (7) Dark urine: Plan: - subjectively reported by patient - UA ordered DVT ppx: chemo contraindicated due to platelet count < 50k/ul; scds Diet: Regular Dispo: Med tele Code: Full, I discussed with patient History of Present Illness Primary Care Provider: Hemant García DO Mr. Goldstein is a 40 yo gentleman with a history of alcohol use disorder who was brought in to the ED by his mother for evaluation of agitation, unsteadiness, and dark urine. He has been admitted to [facility] multiple times in the past for management of alcohol withdrawal. He has a history of alcohol withdrawal seizures. He has been to inpatient alcohol rehab 3 times in the past several years. He is interested in going to inpatient alcohol rehab following this admission. His mother states he is trying to get away from hard liquor - but he is currently drinking a 1/2 gallon of vodka daily. His last drink was today at 7am. He denies any nausea or vomiting. He does report left flank pain - denies any recent falls/injuries. He denies any dysuria, burning. Of note, he was a history of narcotic and benzo missuse in the past. He was on Suboxone for many years - dose of 2, 8mg films. He ran out two days ago - he still gets his prescription from a clinic in the [place] area despite the fact that he has lived in [place] for the past 4 yeas. He admits to not being compliant everyday with it - he has been intentionally spacing the script out to 'make it last.' In the ED, he was febrile with normal HR and BP. His WBC was low at 2.33. ANC was 780.His hgb was normal, MCV was 92; platelets were low at 45k. His electr olytes were WNL. His ALT was elevated to 122, AST to 306. Alk phos elevated to 128. COVID neg. CXR showed no active disease. He was given a banana bag x1, 2mg IV Ativan, and started on a gabapentin taper. Allergies Allergy/AdvReac Type Severity Reaction Status Date / Time No Known Allergies Allergy Unverified 04/04/21 21:07 Home Medications Medication Instructions Recorded Confirmed Type buprenorphine 8 mg-naloxone 2 mg 1 film SUBLINGUAL BID 08/22/20 04/04/21 History sublingual film disulfiram 250 mg tablet 250 mg PO UD 04/04/21 04/04/21 History lisinopril 10 mg tablet 10 mg PO DAILY 04/04/21 04/04/21 History Past Med/Surg History Medical History History of substance abuse Tobacco abuse Surgical History Surgical history unknown Family History Other Family history non-contributory Social History Smoking Status: Current every day smoker Tobacco Type: Cigarettes Cigarettes Per Day: 15; Hx Alcohol Use: Yes Alcohol type: hard liquor Hx Substance Use: Yes Prescribed Medications: Former Misuse of Rx Meds Last Used Substance: Unknown Substance Use Type Other:: Currently on suboxone Preferred Language: Kinyarwanda 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 Beliefs That Will Affect Care: None Current Living Situation: Spouse Current Living Situation Comment: Home with current occupational status: employed current occupation: [employer] How many Children do You have: 1 Feels Safe at Home: Yes Physical Activity Frequency: Daily Assistive Devices: Glasses Review of Systems Review of Systems: as per HPI Physical Exam Constitutional: WD/WN, vitals as above cooperative; no acute distress Eyes: + anicteric sclerae ENMT: external ear and nose normal, oropharynx normal Neck: trachea midline Respiratory: normal respiratory effort, lungs clear to auscultation no cough Cardiovascular: RRR, no murmur, no edema Heart Sounds: normal S1 and normal S2 Extremities: no pedal edema Gastrointestinal (Abdomen): Inspection/Auscultation: abdomen normal to inspection and normal bowel sounds; abdomen not distended Percussion/Palpation: + abdomen tender (LLQ) and abdomen soft Musculoskeletal: Head/Neck/Chest: normocephalic and head atraumatic Skin: no rashes, warm and dry Psychiatric: A+Ox3, euthymic affect Results & Data Results & Data ([facility]) Vital Signs (Past 12 Hours) Vital Signs Temp Pulse Resp BP Pulse Ox 04/04/21 20:30 84 22 138/94 93 04/04/21 20:17 36.8 C 85 20 140/100 87 L 04/04/21 19:43 36.3 C L 94 H 18 159/114 H 93 Supervising Physician Co-Signing Physician Notes Attending addendum: I have physically seen this patient, have supervised the medical residents activities, and agree with the H&P unless as otherwise noted. Assessment and Plan: Alcohol withdrawal/alcohol intoxication- AWSS protocol with oral Ativan and gabapentin Thiamine 100 mg p.o. every morning Folic acid 1 mg p.o. every morning Nephrocaps 1 p.o. daily Seizure precautions Cessation counseling IV fluids Transaminitis- AST 306, ALT 122 Alcoholic hepatitis Follow labs serially Neutropenia/thrombocytopenia- Order a peripheral smear Likely alcoholic suppression of bone marrow Neutropenia precautions Follow laboratory serially Remaining orders and notations as noted Resident Activity Tracking Resident Involvement: Resident Care Provided Care Provided: Adult Hospital Medicine (1) Alcohol withdrawal syndrome Complication of substance-induced condition: uncomplicated Qualified Code(s): F10.230 - Alcohol dependence with withdrawal, uncomplicated
--- NOTE | 2021-04-04 23:05 | Emergency Department Note ---
History of Present Illness General Chief complaint: Alcohol Withdrawal Stated complaint: ALCOHOL DETOX Source: patient, family (Mother) and RN notes reviewed Mode of arrival: ambulatory Limitations: no limitations History of Present Illness Provider complaint: Alcohol abuse, intoxication Maximum Pain Intensity: 10 This patient is a 40-year-old male who presents to the emergency department with complaints of alcohol abuse, intoxication and withdrawal symptoms. Patient states he has not had his Suboxone x2 days as he has run out. He states he has been drinking liquor, mostly vodka, heavily for many years. He has been staying with his parents and ran out of alcohol today as well. He finally told his mother today that he would like to get some help for his alcohol abuse. Mother states he has been in rehab multiple times but things have spiraled out of control recently. Patient is currently not working. He has had DUIs. He has not recently been in a car accident. He states he has not had any alcohol since yesterday although told nursing staff at triage it has been 2 hours. History is unreliable secondary to the patient's questionable intoxication/cooperation. Home Medications Medication Instructions Recorded Confirmed Type buprenorphine 8 mg-naloxone 2 mg 1 film SUBLINGUAL BID 08/22/20 04/04/21 History sublingual film disulfiram 250 mg tablet 250 mg PO UD 04/04/21 04/04/21 History lisinopril 10 mg tablet 10 mg PO DAILY 04/04/21 04/04/21 History folic acid 1 mg tablet 1 mg PO DAILY #30 tab 04/08/21 Rx thiamine HCl (vitamin B1) 100 mg 100 mg PO DAILY #30 tab 04/08/21 Rx tablet Allergies Allergy/AdvReac Type Severity Reaction Status Date / Time No Known Allergies Allergy Unverified 04/04/21 21:07 Past Med/Surg History Medical History Alcohol use disorder History of substance abuse Hypokalemia Leukopenia Pneumonia Thrombocytopenia Tobacco abuse Surgical History Surgical history unknown Family History Other Family history non-contributory Social History Smoking Status: Current every day smoker Tobacco Type: Cigarettes Cigarettes Per Day: 15; Hx Alcohol Use: Yes Alcohol type: hard liquor Hx Substance Use: Yes Prescribed Medications: Former Misuse of Rx Meds Last Used Substance: Unknown Substance Use Type Other:: Currently on suboxone Preferred Language: Cymro Communication Ability: Unable Hair Colorist Required: No Beliefs That Will Affect Care: None Current Living Situation: Spouse Current Living Situation Comment: Home with current occupational status: employed current occupation: [employer] How many Children do You have: 1 Feels Safe at Home: Yes Physical Activity Frequency: Daily Assistive Devices: Glasses Review of Systems See HPI for pertinent positives & negatives. and A total of 10 systems reviewed and were otherwise negative Other (History and review of systems are questionable secondary to the patient's intoxication/cooperation) Physical Exam Vital Signs Vital Signs - 24 hr 04/04/21 19:43 04/04/21 20:17 04/04/21 20:30 Temperature 36.3 C L 36.8 C Temperature Source Temporal Artery Scan Oral Pulse Rate 94 H 85 84 Pulse Rate from SpO2 Sensor 84 Respiratory Rate 18 20 22 Blood Pressure 159/114 H 140/100 138/94 Blood Pressure Mean 129 113 108 Pulse Oximetry 93 87 L 93 Oxygen Delivery Method Room Air Room Air Nasal Cannula Oxygen Flow Rate 0 2 Sepsis Recent Fever Within 48 Hours No Sepsis New/Unexplained Change in Mental Status No Sepsis Action Taken by Nursing No Action Required Oxygen Flow Rate - Titration 2 Pulse Oximetry Post Tiitration 94 04/04/21 21:30 Temperature Temperature Source Pulse Rate 77 Pulse Rate from SpO2 Sensor Respiratory Rate 18 Blood Pressure 138/100 Blood Pressure Mean 112 Pulse Oximetry 97 Oxygen Delivery Method Nasal Cannula Oxygen Flow Rate Sepsis Recent Fever Within 48 Hours Sepsis New/Unexplained Change in Mental Status Sepsis Action Taken by Nursing Oxygen Flow Rate - Titration Pulse Oximetry Post Tiitration Vital signs reviewed. General: Generally well-appearing, intoxicated 40-year-old male, in no significant distress. Baseball cap on head. Smells of alcohol. HEENT: No scleral icterus, PERRLA, neck supple. Atraumatic. Face is teddy. Cardiovascular: Regular rate and rhythm, no extra sounds. Pulmonary: Clear to auscultation bilaterally, normal work of breathing. Abdomen: Soft, nontender, nondistended, positive bowel sounds. Musculoskeletal: Atraumatic, no peripheral edema. Neurologic: Patient awake alert and answers most questions appropriately., moves all extremities equally. Cranial nerves 2 through 12 grossly intact. Speech is minimally slurred. Skin: Warm, dry, no rash Course Administered Medications Discontinued Medications Buprenorphine/Naloxone (Buprenorphine/Naloxone 8/2 Mg Tab) 1 tab SL BID JEAN CARLOS Stop: 05/05/21 00:00 Last Admin: 04/08/21 08:07 Dose: 1 tab Documented by: [id number] Admin: 04/07/21 20:45 Dose: 1 tab Documented by: [id number] Admin: 04/07/21 08:24 Dose: 1 tab Documented by: [id number] Admin: 04/06/21 21:38 Dose: 1 tab Documented by: [id number] Admin: 04/06/21 09:28 Dose: 1 tab Documented by: [id number] Admin: 04/05/21 21:15 Dose: 1 tab Documented by: [id number] Admin: 04/05/21 08:17 Dose: 1 tab Documented by: [id number] Admin: 04/05/21 00:41 Dose: 1 tab Documented by: [id number] Chlordiazepoxide HCl (Chlordiazepoxide Hcl 25 Mg Cap) 50 mg PO NOW ONE Stop: 04/05/21 09:50 Last Admin: 04/05/21 10:03 Dose: 50 mg Documented by: [id number] Chlordiazepoxide HCl (Chlordiazepoxide Hcl 25 Mg Cap) 25 mg PO Q12H JEAN CARLOS Stop: 05/06/21 16:59 Last Admin: 04/07/21 06:24 Dose: 25 mg Documented by: [id number] Admin: 04/06/21 17:10 Dose: 25 mg Documented by: [id number] Chlordiazepoxide HCl (Chlordiazepoxide Hcl 25 Mg Cap) 25 mg PO Q6H JEAN CARLOS Stop: 05/07/21 14:29 Last Admin: 04/08/21 08:07 Dose: 25 mg Documented by: [id number] Admin: 04/08/21 02:50 Dose: 25 mg Documented by: [id number] Admin: 04/07/21 20:45 Dose: 25 mg Documented by: [id number] Admin: 04/07/21 14:03 Dose: 25 mg Documented by: [id number] Chlordiazepoxide HCl (Chlordiazepoxide Hcl 25 Mg Cap) 50 mg PO NOW STA Stop: 04/08/21 08:44 Last Admin: 04/08/21 08:55 Dose: 50 mg Documented by: [id number] Fluticasone Propionate (Fluticasone Propionate Na Spr 16 Gm Btl) 2 sprays OLIVIA DAILY [facility] Stop: 05/07/21 08:59 Last Admin: 04/08/21 08:10 Dose: 2 sprays Documented by: [id number] Admin: 04/07/21 11:22 Dose: 2 sprays Documented by: [id number] Folic Acid (Folic Acid 1 Mg Tab) 1 mg PO QAM [facility] Stop: 05/05/21 00:14 Last Admin: 04/08/21 08:10 Dose: 1 mg Documented by: [id number] Admin: 04/07/21 08:22 Dose: 1 mg Documented by: [id number] Admin: 04/06/21 09:26 Dose: 1 mg Documented by: [id number] Admin: 04/05/21 08:18 Dose: 1 mg Documented by: [id number] Admin: 04/05/21 00:42 Dose: 1 mg Documented by: [id number] Gabapentin (Gabapentin 1200mg Alcohol Withdrawal Load) 1 ea PO NOW STA; Protocol Stop: 04/04/21 20:21 Last Admin: 04/05/21 00:43 Dose: Not Given Documented by: [id number] Gabapentin (Gabapentin 600 Mg Tab) 1,200 mg PO NOW ONE Stop: 04/04/21 20:21 Last Admin: 04/05/21 00:42 Dose: 1,200 mg Documented by: [id number] Gabapentin (Gabapentin 600 Mg Tab) 600 mg PO Q6H [facility] Stop: 04/05/21 08:31 Last Admin: 04/05/21 01:38 Dose: Not Given Documented by: [id number] Gabapentin (Gabapentin 600 Mg Tab) 600 mg PO Q6H [facility] Stop: 04/05/21 12:01 Last Admin: 04/05/21 06:33 Dose: 600 mg Documented by: [id number] Guaifenesin (Guaifenesin 600 Mg Tabcr) 1,200 mg PO Q12 [facility] Stop: 05/07/21 08:59 Last Admin: 04/08/21 08:10 Dose: 1,200 mg Documented by: [id number] Admin: 04/07/21 20:45 Dose: 1,200 mg Documented by: [id number] Admin: 04/07/21 11:22 Dose: 1,200 mg Documented by: [id number] Multivitamins 10 ml/ Thiamine HCl 100 mg/ Folic Acid 1 mg/Sodium Chloride 1,0 11.2 mls @ 1,011.2 mls/hr IV .Q1H ONE Stop: 04/04/21 21:18 Last Infusion: 04/04/21 22:09 Dose: 0 mls/hr Documented by: [id number] Admin: 04/04/21 21:09 Dose: 1,011.2 mls/hr Documented by: [id number] Lorazepam (Ativan) 2 mg in 4 mls @ 4 mls/min IV NOW STA Stop: 04/04/21 20:20 Last Admin: 04/05/21 00:43 Dose: Not Given Documented by: [id number] Sodium Chloride (Nss 1000ml) 1,000 mls @ 125 mls/hr IV .Q8H JEAN CARLOS Stop: 04/05/21 15:48 Last Infusion: 04/05/21 15:35 Dose: 0 mls/hr Documented by: [id number] Admin: 04/05/21 07:34 Dose: 125 mls/hr Documented by: [id number] Infusion: 04/05/21 07:34 Dose: 125 mls/hr Documented by: [id number] Admin: 04/05/21 00:45 Dose: 125 mls/hr Documented by: [id number] Lorazepam (Ativan) 1 mg in 2 mls @ 2 mls/min IV UD PRN; Protocol PRN Reason: EtOH Withdrawl AWSS Score 6,7 Stop: 05/05/21 03:53 Last Admin: 04/06/21 00:45 Dose: 2 mls/min Documented by: [id number] Admin: 04/05/21 16:21 Dose: 2 mls/min Documented by: [id number] Admin: 04/05/21 08:30 Dose: 2 mls/min Documented by: [id number] Lorazepam (Ativan) 2 mg in 4 mls @ 4 mls/min IV UD PRN; Protocol PRN Reason: EtOH Withdrawl AWSS Score 8,9 Stop: 05/05/21 03:53 Last Admin: 04/05/21 23:36 Dose: 4 mls/min Documented by: [id number] Admin: 04/05/21 14:05 Dose: 4 mls/min Documented by: [id number] Admin: 04/05/21 09:48 Dose: 4 mls/min Documented by: [id number] Admin: 04/05/21 07:34 Dose: 4 mls/min Documented by: [id number] Admin: 04/05/21 04:38 Dose: 4 mls/min Documented by: [id number] Lorazepam (Ativan) 3 mg in 6 mls @ 4 mls/min IV ONCE PRN; Protocol PRN Reason: EtOH Withdrawl AWSS Score >=10 Stop: 05/05/21 03:53 Last Admin: 04/06/21 06:55 Dose: 4 mls/min Documented by: [id number] Admin: 04/06/21 05:11 Dose: 4 mls/min Documented by: [id number] Admin: 04/05/21 20:27 Dose: 4 mls/min Documented by: [id number] Phenobarbital Sodium 130 mg/ (Syringe) 2 mls @ 0.923 mls/min IV NOW ONE Stop: 04/05/21 11:32 Last Admin: 04/05/21 11:37 Dose: 0.923 mls/min Documented by: [id number] Phenobarbital Sodium 130 mg/ (Syringe) 2 mls @ 0.923 mls/min IV ONE ONE Stop: 04/06/21 05:47 Last Admin: 04/06/21 05:41 Dose: 0.923 mls/min Documented by: [id number] Lorazepam (Ativan) 2 mg in 4 mls @ 4 mls/min IV NOW STA Stop: 04/06/21 06:12 Last Admin: 04/06/21 06:16 Dose: 4 mls/min Documented by: [id number] Potassium Phosphate 21 mmol/ (Sodium Chloride) 507 mls @ 88 mls/hr IV ONE ONE Stop: 04/06/21 14:15 Last Infusion: 04/06/21 14:54 Dose: 0 mls/hr Documented by: [id number] Admin: 04/06/21 09:26 Dose: 88 mls/hr Documented by: [id number] Magnesium Sulfate/Dextrose (Magnesium Sulfate / D5w) 1 gm in 100 mls @ 50 mls/hr IV Q2H JEAN CARLOS Stop: 04/06/21 13:29 Last Infusion: 04/06/21 14:54 Dose: 0 mls/hr Documented by: [id number] Admin: 04/06/21 11:50 Dose: 50 mls/hr Documented by: [id number] Infusion: 04/06/21 11:50 Dose: 50 mls/hr Documented by: [id number] Admin: 04/06/21 10:18 Dose: 50 mls/hr Documented by: [id number] Lorazepam (Ativan) 3 mg in 6 mls @ 0.5 mls/min IV Q8H PRN PRN Reason: Alcohol Withdrawal Stop: 05/06/21 10:02 Last Admin: 04/06/21 21:38 Dose: 0.5 mls/min Documented by: [id number] Lorazepam (Ativan) 2 mg in 4 mls @ 4 mls/min IV NOW STA Stop: 04/06/21 23:34 Last Admin: 04/06/21 23:42 Dose: 4 mls/min Documented by: [id number] Potassium Chloride (K Bakari / Wtr) 10 meq in 100 mls @ 100 mls/hr IV Q1H JEAN CARLOS Stop: 04/07/21 08:44 Last Admin: 04/07/21 10:50 Dose: Not Given Documented by: [id number] Admin: 04/07/21 10:50 Dose: Not Given Documented by: [id number] Magnesium Sulfate/Dextrose (Magnesium Sulfate / D5w) 1 gm in 100 mls @ 50 mls/hr IV Q2H JEAN CARLOS Stop: 04/07/21 11:59 Last Infusion: 04/07/21 12:54 Dose: 0 mls/hr Documented by: [id number] Admin: 04/07/21 11:21 Dose: 50 mls/hr Documented by: [id number] Infusion: 04/07/21 10:27 Dose: 0 mls/hr Documented by: [id number] Admin: 04/07/21 08:22 Dose: 50 mls/hr Documented by: [id number] Ibuprofen (Ibuprofen 600 Mg Tab) 600 mg PO Q6H PRN PRN Reason: Headache Stop: 05/05/21 20:38 Last Admin: 04/07/21 22:36 Dose: 600 mg Documented by: [id number] Admin: 04/05/21 21:15 Dose: 600 mg Documented by: [id number] Ioversol (Optiray 320 125ml) 120 ml IV ONCE ONE Stop: 04/07/21 13:24 Last Admin: 04/07/21 13:24 Dose: 120 ml Documented by: [id number] Lisinopril (Lisinopril 10 Mg Tab) 10 mg PO DAILY JEAN CARLOS Stop: 05/05/21 08:59 Last Admin: 04/08/21 08:11 Dose: 10 mg Documented by: [id number] Admin: 04/07/21 08:23 Dose: 10 mg Documented by: [id number] Admin: 04/06/21 09:26 Dose: 10 mg Documented by: [id number] Admin: 04/05/21 08:18 Dose: 10 mg Documented by: [id number] Lorazepam (Lorazepam 1 Mg Tab) 1 mg PO ONE PRN; Protocol PRN Reason: EtoH Withdrawal AWSS 6-10 Last Admin: 04/05/21 00:40 Dose: 1 mg Documented by: [id number] Lorazepam (Lorazepam 1 Mg Tab) 2 mg PO NOW STA Stop: 04/08/21 04:16 Last Admin: 04/08/21 04:35 Dose: 2 mg Documented by: [id number] Melatonin (Melatonin 3 Mg Tab) 3 mg PO HS PRN PRN Reason: Sleep Stop: 05/07/21 23:30 Last Admin: 04/08/21 00:53 Dose: 3 mg Documented by: [id number] Miscellaneous (Remove Nicoderm Patch) 1 ea N/A DAILY@0859 [facility] Stop: 05/08/21 08:58 Last Admin: 04/08/21 08:09 Dose: 1 ea Documented by: [id number] Nicotine (Nicotine 14 Mg/24 Hr Patch) 14 mg TD QAM [facility] Stop: 05/08/21 08:59 Last Admin: 04/08/21 08:08 Dose: 14 mg Documented by: [id number] Ondansetron HCl (Ondansetron Inj 2 Mg/Ml 2 Ml Vial) 4 mg IV Q6H PRN PRN Reason: Nausea Stop: 05/04/21 23:48 Last Admin: 04/05/21 08:31 Dose: 4 mg Documented by: [id number] Admin: 04/05/21 03:34 Dose: 4 mg Documented by: [id number] Ondansetron HCl (Ondansetron Inj 2 Mg/Ml 2 Ml Vial) 4 mg IV Q6H PRN PRN Reason: Nausea Stop: 05/06/21 09:29 Last Admin: 04/07/21 22:41 Dose: 4 mg Documented by: [id number] Potassium Chloride (Potassium Chloride Crtab 20 Meq Tabcr) 20 meq PO NOW ONE Stop: 04/07/21 06:32 Last Admin: 04/07/21 08:22 Dose: 20 meq Documented by: [id number] Potassium Chloride (Potassium Chloride Crtab 20 Meq Tabcr) 40 meq PO NOW STA Stop: 04/07/21 07:43 Last Admin: 04/07/21 08:22 Dose: 40 meq Documented by: [id number] Thiamine HCl (Thiamine Hcl 100 Mg Tab) 100 mg PO QAM [facility] Stop: 05/05/21 00:14 Last Admin: 04/05/21 08:18 Dose: 100 mg Documented by: [id number] Admin: 04/05/21 00:41 Dose: 100 mg Documented by: [id number] Thiamine HCl ([facility] Hcl 100 Mg Tab) [facility] Stop: 05/06/21 08:59 Last Admin: 04/08/21 08:10 Dose: 200 mg Documented by: [id number] Admin: 04/07/21 08:23 Dose: 200 mg Documented by: [id number] Admin: 04/06/21 09:26 Dose: 200 mg Documented by: [id number] Medical Decision Making Differential Diagnosis The differential diagnosis of the patient's presentation includes alcohol ingestion, withdrawal, illicit drug use, trauma, and dehydration. Medical Records Attestation: I reviewed the patient's medical records. Home Medications Current Medication List: was personally reviewed by me Laboratory Data Attestation: I reviewed the patient's lab results. Result diagrams: 04/08/21 05:24 04/08/21 05:24 Lab Results 04/04/21 04/04/21 04/04/21 Range/Units 20:13 20:13 20:25 WBC 2.33 L (4.8-10.8) K/uL RBC 5.54 (4.7-6.1) M/uL Hgb 17.2 (14.0-18.0) g/dL Hct 51.2 (42-52) % MCV 92.4 (80-100) fL MCH 31.0 (25-34) pg MCHC 33.6 (32-36) g/dL RDW Std Deviation 50.7 H (36.4-46.3) fL RDW Coeff of Dale 14.9 H (11.5-14.5) % Plt Count 45 L (130-400) K/uL MPV 10.7 H (7.4-10.4) fL Immature Gran % (Auto) 0.4 % Neut % (Auto) 33.5 % Lymph % (Auto) 46.8 % [place] % (Auto) 9.9 % Eos % (Auto) 2.1 % Baso % (Auto) 7.3 % Neut # (Auto) 0.78 L* (1.4-6.5) K/uL Lymph # (Auto) 1.09 L (1.2-3.4) K/uL [place] # (Auto) 0.23 (0.11-0.59) K/uL Eos # (Auto) 0.05 (0-0.5) K/uL Baso # (Auto) 0.17 (0-0.2) K/uL Immature Gran # (Auto) 0.01 (0.00-0.02) K/uL Sodium 140 (136-145) mmol/L Potassium (3.5-5.1) mmol/L Chloride 102 (98-107) mmol/L Carbon Dioxide 30 (21-32) mmol/L Anion Gap 7.0 (3-11) BUN 6 L (7-18) mg/dl Creatinine 0.53 L (0.6-1.4) mg/dl Est Cr Clr Drug Dosing 183.4 ml/min Est GFR ( Amer) > 150.0 ml/min Est GFR (Non-Af Amer) 131.4 ml/min BUN/Creatinine Ratio 10.8 (10-20) Glucose 102 H (70-99) mg/dl Calcium 8.3 L (8.5-10.1) mg/dl Total Bilirubin 0.8 (0.2-1) mg/dl AST (15-37) U/L ALT 122 H (12-78) U/L Alkaline Phosphatase 128 H (45-117) U/L Total Protein 8.0 (6.4-8.2) gm/dl Albumin 3.7 (3.4-5.0) gm/dl Globulin 4.3 H (2.5-4.0) gm/dl Albumin/Globulin Ratio 0.9 (0.9-2) Ethyl Alcohol mg/dL 472.0 H (0-3) mg/dl COVID-19 Eval Order SARS-CoV-2 (PCR) (Negative) 04/04/21 04/04/21 04/04/21 Range/Units 21:13 21:13 21:19 WBC (4.8-10.8) K/uL RBC (4.7-6.1) M/uL Hgb (14.0-18.0) g/dL Hct (42-52) % MCV (80-100) fL MCH (25-34) pg MCHC (32-36) g/dL RDW Std Deviation (36.4-46.3) fL RDW Coeff of Dale (11.5-14.5) % Plt Count (130-400) K/uL MPV (7.4-10.4) fL Immature Gran % (Auto) % Neut % (Auto) % Lymph % (Auto) % [place] % (Auto) % Eos % (Auto) % Baso % (Auto) % Neut # (Auto) (1.4-6.5) K/uL Lymph # (Auto) (1.2-3.4) K/uL [place] # (Auto) (0.11-0.59) K/uL Eos # (Auto) (0-0.5) K/uL Baso # (Auto) (0-0.2) K/uL Immature Gran # (Auto) (0.00-0.02) K/uL Sodium (136-145) mmol/L Potassium 3.6 (3.5-5.1) mmol/L Chloride (98-107) mmol/L Carbon Dioxide (21-32) mmol/L Anion Gap (3-11) BUN (7-18) mg/dl Creatinine (0.6-1.4) mg/dl Est Cr Clr Drug Dosing ml/min Est GFR ( Amer) ml/min Est GFR (Non-Af Amer) ml/min BUN/Creatinine Ratio (10-20) Glucose (70-99) mg/dl Calcium (8.5-10.1) mg/dl Total Bilirubin (0.2-1) mg/dl AST 306 H (15-37) U/L ALT (12-78) U/L Alkaline Phosphatase (45-117) U/L Total Protein (6.4-8.2) gm/dl Albumin (3.4-5.0) gm/dl Globulin (2.5-4.0) gm/dl Albumin/Globulin Ratio (0.9-2) Ethyl Alcohol mg/dL (0-3) mg/dl COVID-19 Eval Order Covid19 at [facility] SARS-CoV-2 (PCR) NEGATIVE (Negative) Imaging Data Radiologist's Impression: Chest X-Ray 04/04/21 20:36 XR chest 1V portable HISTORY: 40 years-old Male ? Aspiration acute shortness of breath COMPARISON: Chest radiograph and CTA chest 08/22/2020 TECHNIQUE: Portable AP view of the chest FINDINGS: Cardiomediastinal and hilar silhouettes are within normal limits. No pneumothorax, pleural effusion, airspace elevation or overt pulmonary edema. B ones of the chest intact. IMPRESSION: No acute process. ACT 112: Negative or not required by law. The above report was generated using voice recognition software. It may contain grammatical, syntax or spelling errors. Electronically signed by: Cal Narayan M.D. 04/04/2021 8:54 PM ECG Data Attestation: I personally reviewed and interpreted this ECG as follows: Indication: + toxicologic Rate (beats per minute): 79 Rhythm: + normal sinus ECG Intervals/blocks: + Normal QT-c ECG Panora: + Normal ECG ST segments: + Normal ST segments, + T-wave inversions (Anterior) and + Nonspecific ST abnormalities (Anterior) ECG Findings: + Q waves (Septal); no PACs or no PVCs Blood Pressure Blood Pressure Findings: Elevated blood pressure Blood Pressure Disposition: further management by hospitalist ROSSI Bethea This patient was evaluated and appeared to be in no significant distress. IV access was obtained and laboratory work was drawn. An order for cardiac monitoring was placed and the patient is noted to be in normal sinus rhythm 85 bpm. EKG reveals nonspecific ST changes in the anterior leads. Patient's blood alcohol level is noted to be markedly elevated at 472. He is leukopenic and thrombocytopenic. Patient was given a banana bag and IV normal saline solution. Due to his marked intoxication, polysubstance abuse including Suboxone and alcohol, he will require hospitalization for further treatment and withdrawal symptoms. Patient states he has agreeable with this plan. Hospitalist has been consulted for further management. Impression & Plan Alcohol withdrawal syndrome, Leukopenia, Alcohol use disorder, Thrombocytopenia Discharge Plan Visit Data Chief Complaint: Alcohol Withdrawal Stated Complaint: ALCOHOL DETOX ED Provider: Nora Lemhan Discharge Problem: Alcohol withdrawal syndrome, Leukopenia, Alcohol use disorder, Thrombocytopenia Patient Disposition: Admitted As Inpatient Discharge Instructions Interventions: ED Discharge Assessment Last Done: 04/04/21 23:07 Discharge Problem: Alcohol withdrawal syndrome Qualifiers: Complication of substance-induced condition: with unspecified complication Qualified Code(s): F10.239 - Alcohol dependence with withdrawal, unspecified Leukopenia Qualifiers: Leukopenia type: unspecified Qualified Code(s): D72.819 - Decreased white blood cell count, unspecified
[2021-04-04] MEDS ORDERED: POLYETHYLENE (MIRALAX) 17 GM PACK PO PRN (23:49)
[2021-04-04] MEDS ORDERED: LORazepam 1 MG TAB PO PRN (23:49)
[2021-04-05 00:39] LABS: Prothrombin Time 10.6 Seconds (9.0-12.0)
[2021-04-05] MEDS: THIAMINE HCL 100 MG TAB PO SCH ×2 (00:41→08:18)
[2021-04-05] MEDS: BUPRENORPHINE/NALOXONE 8/2 MG TAB SL SCH ×3 (00:41→21:15)
[2021-04-05] MEDS: FOLIC ACID 1 MG TAB PO SCH ×2 (00:42→08:18)
[2021-04-05] MEDS: SODIUM CHLORIDE 0.9% 1000ML 1,000 ML IV SCH ×2 (00:45→07:34)
[2021-04-05] MEDS ORDERED: GABAPENTIN 600 MG TAB PO SCH ×4 (02:30→20:00)
[2021-04-05] MEDS: ONDANSETRON INJ 2 MG/ML 2 ML VIAL IV PRN ×2 (03:34→08:31)
[2021-04-05] MEDS ORDERED: ATIVAN IV ALCOHOL WITHDRAWL IV PRN (03:54)
[2021-04-05] MEDS: LORazepam 2 MG/4 ML VIAL IV PRN ×5 (04:38→23:36)
[2021-04-05 06:18] LABS: Hematocrit (blood only) 47.2 % (42-52); Hemoglobin 15.7 g/dL (14.0-18.0); Mean Corpuscular Hemoglobin 30.9 pg (25-34); Mean Corpuscular Hgb Conc 33.3 g/dL (32-36); Mean Corpuscular Volume 92.9 fL (80-100); RDW Coefficient of Variation 14.9 % (11.5-14.5); Red Blood Count 5.08 M/uL (4.7-6.1); White Blood Count 2.48 K/uL (4.8-10.8)
[2021-04-05 06:41] LABS: Mean Platelet Volume 9.7 fL (7.4-10.4); Platelet Count 34 K/uL (130-400)
[2021-04-05 06:43] LABS: Basophils # (auto) 0.15 K/uL (0-0.2); Eosinophils # (auto) 0.01 K/uL (0-0.5); Eosinophils % (auto) 0.4 %; Lymphocytes # (auto) 0.88 K/uL (1.2-3.4); Lymphocytes % (auto) 35.5 %; Monocytes # (auto) 0.27 K/uL (0.11-0.59); Monocytes % (auto) 10.9 %; Neutrophils # (auto) 1.17 K/uL (1.4-6.5); Neutrophils % (auto) 47.2 %
[2021-04-05 07:01] LABS: Alanine Aminotransferase 109 U/L (12-78); Albumin Level 3.5 gm/dl (3.4-5.0); Aspartate Aminotransferase 304 U/L (15-37); BUN Creatinine Ratio 12.9 (10-20); Blood Urea Nitrogen 5 mg/dl (7-18); Calcium 7.8 mg/dl (8.5-10.1); Carbon Dioxide 30 mmol/L (21-32); Chloride 103 mmol/L (98-107); Creatinine Clr Calc Pharmacy 255.8 ml/min; Est GFR (African American) > 150.0 ml/min; Est GFR (Non-African American) > 150.0 ml/min; Glucose 87 mg/dl (70-99); Potassium 3.6 mmol/L (3.5-5.1); Sodium 139 mmol/L (136-145)
[2021-04-05 07:03] LABS: Albumin Globulin Ratio 0.9 (0.9-2); Alkaline Phosphatase 116 U/L (45-117); Globulin 3.9 gm/dl (2.5-4.0); Total Protein 7.4 gm/dl (6.4-8.2)
[2021-04-05 07:55] LABS: Appearance Urine Clear (Clear); Bacteria Urine Automated Negative (Negative); Bilirubin Urine Negative (Negative); Blood Urine 2+ (Negative); Color Urine Orange; Glucose Urine UA Negative (Negative); Ketones Urine Negative (Negative); Leukocyte Esterase Urine Negative (Negative); Nitrite Urine Negative (Negative); Protein Urine 2+ (Negative); RBC Urine Automated 0-4 /hpf (0-4); Specific Gravity Urine 1.019 (1.000-1.030); Urobilinogen Urine Negative (Negative); WBC Urine Automated 0 /hpf (0-5); pH Urine 6.5 (4.5-7.5)
[2021-04-05] MEDS: lisinopril 10 MG TAB PO SCH (08:18)
[2021-04-05 08:19] LABS: Amphetamines+Metham, Urine Neg (Neg); Barbiturates, Urine Neg (Neg); Benzodiazepine, Urine Neg (Neg); Cocaine, Urine Neg (Neg); MDMA (Ecstacy), Urine Neg (Neg); Methadone, Urine Neg (Neg); Opiate, Urine Neg (Neg); Phencyclidine, Urine Neg (Neg)
[2021-04-05] MEDS: LORazepam 1 MG/2 ML VIAL IV PRN ×2 (08:30→16:21)
[2021-04-05] MEDS ORDERED: chlordiazePOXIDE HCl 25 MG CAP PO ONE (09:49)
--- NOTE | 2021-04-05 09:58 | Hospitalist Progress Note ---
Date of Service April 05, 2021 Assessment & Plan (1) Alcohol intoxication: Plan: 40 yo male with a history of alcohol use disorder, multiple hospitalizations for withdrawal including inpatient rehab stays, history of withdrawal seizures as well as other substance use disorder (opioids, benzodiazepines) who is being admitted for acute alcohol intoxication and withdrawal management 1) Alcohol intoxication and withdrawal symptoms - Pt presented with intoxication and noted to have significant withdrawal symptoms in hospital, including active delirium tremens 8/5 resolving with Ativan, Librium and phenobarbital 130 mg. Will closely monitor, AWSS protocol with IV Ativan, will repeat IV phenobarbital 130 mg if withdrawal symptoms refractory to Ativan - Librium 50 mg initiated today - Gabapentin taper discontinued - Thiamine increased to 200 mg qAM - Folic acid 1 mg qAM - Seizure precautions - Alcohol-induced transaminitis resolving, AST ALT 304/109 - Trend CMP 2) Substance use disorder - Continue home suboxone 8 mg/2 mg given previous history of opioid use disorder - Pt will benefit from follow up with outpatient suboxone clinic locally (goes to [place] typically) - Will need to further explore patient's substance use history and behaviors pending stabilization of alcohol withdrawal symptoms 3) Pancytopenia - Likely due to alcohol-mediated bone marrow suppression/cytotoxicity given reduction in multiple cell lines- platelets at 34, WBCs at 2.48 with ANC 1.17. Expected to resolve with alcohol discontinuation - Peripheral smear negative for hematologic abnormality (ex: platelet clumping), immunodeficiency or malignancy, only reduced numbers of cell lines with unremarkable morphology - HIV negative - Trend CBC - Transfuse with pRBCs for Hb < 7, platelets <20 - Monitor for fever given elevated risk for infection DVT ppx: chemo contraindicated due to platelet count < 50k/ul; SCDs Diet: Regular Dispo: PCU Code: Full (2) Alcohol withdrawal syndrome: Plan: (3) Transaminitis: (4) Thrombocytopenia: (5) Leukopenia: (6) History of substance abuse: (7) Dark urine: Admission and Anticipated Discharge Date Admission Date: April 04, 2021 Supervising Physician Co-Signing Physician Notes I personally examined the patient and verified all olivera points of history and exam, discussed case, and agree with decision making with Dr Ngo. Feeling very anxious and shakyalthough better than whenever he was seen earlier this morning. Still very tremulous, still very anxious. Vitals noted, in general he is awake and alert shaky and anxious. He is trying to eat. HEENT normocephalic atraumatic mucous membranes moist. Breathing unlabored no accessory muscle use good effort. Skin shows no rashes no pallor or icterus. Neuro shows him to be quite tremulous. Alcohol abuse/withdrawalwith alcoholic hepatitis/transaminitis, and pancytopeniamost likely marrow suppression/cytotoxicity, but definitely want to rule out nutrient deficiencies as wellthiamine and folate, Ativan, has needed as needed phenobarb, given how much Ativan he was needing we have added Librium to fill some of the need, check B12 iron studies etc. Moved to telemetry, high risk for further deteriorationclose observation and titration of meds. Continue supportive care. Subjective Pt received Ativan overnight due to AWSS 6+. Seen in morning, noted to have significant tremors while attempting to eat breakfast. States he does not feel any cravings for alcohol, denies nausea or abdominal pain but endorses significant restlessness and anxiety. Shortly thereafter, nursing team alerted provider that pt vomited a few times, tried to pull out his IV and also had increased restlessness. Given Ativan again, transferred to PCU for delirium tremens. Noted to be hypertensive to 213/124 in PCU, given phenobarbital to treat DT. Pt seen on afternoon rounds, noted improvement in tremulousness and restlessness from morning. Review of Systems Review of Systems: All systems reviewed & are unremarkable except as noted in Subjective Constitutional: +Restless, nervous Gastrointestinal: +Vomiting Neurologic: +Tremors Psychiatric: + anxiety Physical Exam Physical Exam: General: Well-developed, well-nourished, minimal distress HEENT: Normocephalic, atraumatic, pupillary constriction to light intact b/l, moist mucous membranes, no conjunctivitis, no lymphadenopathy Resp: CTAB, good air flow entry Cardio: Normal S1, S2, regular rhythm, +tachycardia GI: +mild TTP diffusely (L > R), soft, nondistended, no hepatosplenomegaly MSK: 5/5 strength in b/l UE and LE Neuro: +diffuse tremor of b/l UE and lips, sensation intact Skin: +moist/sweating Psych: AOx3, +distracted, +restless Results & Data Results & Data ([facility]) Vital Signs (Past 12 Hours) Vital Signs Temp Pulse Pulse Resp BP Pulse Ox 04/05/21 09:50 36.6 C 110 H 20 150/110 H 94 04/05/21 08:20 36.6 C 90 18 165/112 H 94 04/05/21 07:46 95 H 04/05/21 07:36 37.2 C 92 H 18 169/101 H 91 04/05/21 05:28 78 04/05/21 03:27 37.1 C 79 18 160/99 H 90 04/04/21 23:50 36.7 C 82 24 164/109 H 92 Resident Activity Tracking Resident Involvement: Resident Care Provided Care Provided: Adult Hospital Medicine (1) Alcohol withdrawal syndrome Complication of substance-induced condition: uncomplicated Qualified Code(s): F10.230 - Alcohol dependence with withdrawal, uncomplicated
[2021-04-05] MEDS ORDERED: PHENobarbitaL sodium 130 MG in SYRINGE 0 ML IV ONE (11:30)
[2021-04-05 13:44] LABS: Ferritin 485.9 ng/ml (8-388)
--- NOTE | 2021-04-05 16:57 | Billing Data ---
Date of Service April 05, 2021 Coding Level of Care Code 05577 Subseq Hosp Care Lvl 3
[2021-04-05] MEDS: LORazepam 3 MG/6 ML VIAL IV PRN (20:27)
[2021-04-05] MEDS: IBUPROFEN 600 MG TAB PO PRN (21:15)
[2021-04-06] MEDS: LORazepam 1 MG/2 ML VIAL IV PRN (00:45)
--- NOTE | 2021-04-06 02:05 | Billing Data ---
Date of Service April 06, 2021 Coding Level of Care Code 12313 Initial Inpt Care Lvl 3
[2021-04-06] MEDS: LORazepam 3 MG/6 ML VIAL IV PRN ×2 (05:11→06:55)
[2021-04-06] MEDS ORDERED: PHENobarbitaL sodium 130 MG in SYRINGE 0 ML IV ONE (05:45)
[2021-04-06] MEDS ORDERED: LORazepam 2 MG/4 ML VIAL IV STA ×2 (06:11→23:33)
[2021-04-06 06:52] LABS: Alanine Aminotransferase 99 U/L (12-78); Albumin Level 3.4 gm/dl (3.4-5.0); Aspartate Aminotransferase 245 U/L (15-37); BUN Creatinine Ratio 15.1 (10-20); Blood Urea Nitrogen 6 mg/dl (7-18); Calcium 8.4 mg/dl (8.5-10.1); Carbon Dioxide 29 mmol/L (21-32); Chloride 99 mmol/L (98-107); Creatinine Clr Calc Pharmacy 237.1 ml/min; Est GFR (African American) > 150.0 ml/min; Glucose 85 mg/dl (70-99); Potassium 3.2 mmol/L (3.5-5.1); Sodium 134 mmol/L (136-145)
[2021-04-06 06:53] LABS: Hematocrit (blood only) 47.7 % (42-52); Hemoglobin 15.9 g/dL (14.0-18.0); Mean Corpuscular Hemoglobin 30.9 pg (25-34); Mean Corpuscular Hgb Conc 33.3 g/dL (32-36); Mean Corpuscular Volume 92.8 fL (80-100); Platelet Count 25 K/uL (130-400); RDW Coefficient of Variation 14.4 % (11.5-14.5); RDW Standard Deviation 48.8 fL (36.4-46.3); Red Blood Count 5.14 M/uL (4.7-6.1); White Blood Count 4.98 K/uL (4.8-10.8)
[2021-04-06 06:56] LABS: Eosinophils # (auto) 0.06 K/uL (0-0.5); Eosinophils % (auto) 1.2 %; Immature Granulocytes # (auto) 0.01 K/uL (0.00-0.02); Immature Granulocytes % (auto) 0.2 %; Lymphocytes # (auto) 0.81 K/uL (1.2-3.4); Lymphocytes % (auto) 16.3 %; Monocytes # (auto) 0.26 K/uL (0.11-0.59); Monocytes % (auto) 5.2 %; Neutrophils # (auto) 3.74 K/uL (1.4-6.5); Neutrophils % (auto) 75.1 %; Platelet Estimate SIGNIFIC DECREASED (Normal)
[2021-04-06 07:02] LABS: Albumin Globulin Ratio 0.9 (0.9-2); Alkaline Phosphatase 117 U/L (45-117); Bilirubin,Total 1.6 mg/dl (0.2-1); Total Protein 7.4 gm/dl (6.4-8.2)
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
[2021-04-06] MEDS ORDERED: POTASSIUM PHOS 3 MMOL/1 ML INFUSION IV STA (08:00)
[2021-04-06] MEDS ORDERED: POTASSIUM PHOSPHATE 21 MMOL in SODIUM CHLORIDE 0.9% 500 ML IV ONE (08:30)
[2021-04-06 09:25] LABS: Magnesium 1.3 mg/dl (1.8-2.4); Phosphorus 2.8 mg/dl (2.5-4.9)
[2021-04-06] MEDS: lisinopril 10 MG TAB PO SCH (09:26)
[2021-04-06] MEDS: THIAMINE HCL 100 MG TAB PO SCH (09:26)
[2021-04-06] MEDS: FOLIC ACID 1 MG TAB PO SCH (09:26)
[2021-04-06] MEDS: BUPRENORPHINE/NALOXONE 8/2 MG TAB SL SCH ×2 (09:28→21:38)
[2021-04-06] MEDS ORDERED: ONDANSETRON INJ 2 MG/ML 2 ML VIAL IV PRN (09:30)
[2021-04-06] MEDS ORDERED: LORazepam 3 MG/6 ML VIAL IV PRN (10:03)
[2021-04-06] MEDS: MAGNESIUM SULFATE / D5W 1 GM/100 ML BAG IV SCH ×2 (10:18→11:50)
--- NOTE | 2021-04-06 11:12 | Hospitalist Progress Note ---
Date of Service April 06, 2021 Assessment & Plan (1) Alcohol withdrawal syndrome: Plan: 40 yo male with a history of alcohol use disorder, multiple hospitalizations for withdrawal including inpatient rehab stays, history of withdrawal seizures as well as other substance use disorder (opioids, benzodiazepines) who is being admitted for acute alcohol intoxication and withdrawal management 1) Alcohol intoxication and withdrawal symptoms - Pt presented with intoxication and noted to have significant withdrawal symptoms in hospital, including active delirium tremens 8/5 resolving with Ativan, Librium and phenobarbital 130 mg. Will closely monitor, AWSS protocol w ith IV Ativan, repeat IV phenobarbital 130 mg if withdrawal symptoms refractory to Ativan - Pt transferred to ICU today due to concerns of respiratory depression with Ativan and phenobarbital treatment for withdrawal, though patient has been stable, ICU weaning off O2 NC. Considering Precedex if agitation refractory to Ativan/phenobarbital - Librium 50 mg - Gabapentin taper discontinued - Thiamine 200 mg qAM - Folic acid 1 mg qAM - Seizure precautions - Alcohol-induced transaminitis resolving, AST ALT 304/109 - Trend CMP 2) Substance use disorder - Continue home suboxone 8 mg/2 mg given previous history of opioid use disorder - Pt will benefit from follow up with outpatient suboxone clinic locally (goes to [place] typically) - Will need to further explore patient's substance use history and behaviors pending stabilization of alcohol withdrawal symptoms 3) Pancytopenia - Likely due to alcohol-mediated bone marrow suppression/cytotoxicity given reduction in multiple cell lines- platelets at 25, WBCs at 4.98. Expected to resolve with alcohol discontinuation - Peripheral smear negative for hematologic abnormality (ex: platelet clumping), immunodeficiency or malignancy, only reduced numbers of cell lines with unremarkable morphology - HIV negative - Trend CBC - Transfuse with pRBCs for Hb < 7, platelets <20 - Monitor for fever given elevated risk for infection, neutropenic precautions DVT ppx: chemo contraindicated due to platelet count < 50k/ul; SCDs Diet: Regular Dispo: ICU Code: Full Admission and Anticipated Discharge Date Admission Date: April 04, 2021 Supervising Physician Co-Signing Physician Notes I personally examined the patient and verified all olivera points of history and exam, discussed case, and agree with decision making with Dr Ngo. Was feeling worse and more tremulous this morning. Given additional dose of phenobarb. Now sleepingnot tremulousmuch more calm. Vitals noted, in general asleep but appears comfortable. No apnea, adequate respiratory effort. HEENT normocephalic atraumatic mucous membranes moist. Breathing unlabored no accessory muscle use good effort spontaneously without apnea. Skin shows no rashes no pallor or icterus. Alcohol abuse/withdrawalwith alcoholic hepatitis/transaminitis, and pancytopeniamost likely marrow suppression/cytotoxicity, continue symptom triggered therapy and supportive care. Subjective Pt received multiple Ativan doses overnight, total 9 mg. Was noted by nursing staff to be restless and agitated, insisting on leaving. Received dose of phenobarbital and was relaxed afterward. Seen in morning, noted to have slight tremors and complaining of sleepiness and anxiety. Pt later transferred to ICU after discussion with ICU providers about usage of concurrent usage of phenobarbital with Ativan Review of Systems Review of Systems: All systems reviewed & are unremarkable except as noted in Subjective Constitutional: +Sleepiness Neurologic: +Tremors Psychiatric: + anxiety Physical Exam Physical Exam: General: Well-developed, well-nourished, drowsy HEENT: Normocephalic, atraumatic, pupillary constriction to light intact b/l, moist mucous membranes, no conjunctivitis, no lymphadenopathy Resp: CTAB, good air flow entry Cardio: Normal S1, S2, regular rhythm, +tachycardia GI: +mild TTP diffusely, soft, nondistended, no hepatosplenomegaly MSK: 5/5 strength in b/l UE and LE Neuro: +decreased tremor of b/l UE and lips, sensation intact Skin: +moist/sweating Psych: AOx3, +anxious Results & Data Results & Data ([facility]) Vital Signs (Past 12 Hours) Vital Signs Temp Pulse Pulse Resp BP BP Pulse Ox 04/06/21 10:35 89 149/108 H 88 L 04/06/21 09:35 79 153/114 H 96 04/06/21 08:35 81 148/123 H 92 04/06/21 07:35 77 94 04/06/21 07:13 36.8 C 79 83 14 144/98 H 144/98 H 92 04/06/21 06:48 75 8 L 150/112 H 95 04/06/21 06:46 37.2 C 75 11 L 146/106 H 96 04/06/21 06:38 37.0 C 79 11 L 164/109 H 95 04/06/21 05:22 36.8 C 74 11 L 149/103 H 93 04/06/21 05:00 37.4 C 84 12 162/126 H 92 04/06/21 03:40 37.0 C 86 15 153/106 H 93 04/06/21 02:33 36.4 C L 81 12 153/103 H 93 04/06/21 00:40 36.4 C L 88 14 152/109 H 94 04/05/21 23:49 04/05/21 23:14 37.6 C H 89 12 161/115 H 94 Pulse Ox 04/06/21 10:35 04/06/21 09:35 04/06/21 08:35 04/06/21 07:35 04/06/21 07:13 04/06/21 06:48 04/06/21 06:46 04/06/21 06:38 04/06/21 05:22 04/06/21 05:00 04/06/21 03:40 04/06/21 02:33 04/06/21 00:40 04/05/21 23:49 92 04/05/21 23:14 Resident Activity Tracking Resident Involvement: Resident Care Provided Care Provided: Adult Hospital Medicine (1) Alcohol withdrawal syndrome Complication of substance-induced condition: uncomplicated Qualified Code(s): F10.230 - Alcohol dependence with withdrawal, uncomplicated
[2021-04-06] MEDS: chlordiazePOXIDE HCl 25 MG CAP PO SCH (17:10)
--- NOTE | 2021-04-06 17:26 | Billing Data ---
Date of Service April 06, 2021 Coding Level of Care Code Critical Care 1st 30-74 mins Time Spent (min) 42
--- NOTE | 2021-04-06 18:02 | Electrocardiogram Report ---
Test Reason : Blood Pressure : / mmHG Vent. Rate : 079 BPM Atrial Rate : 079 BPM P-R Int : 162 ms QRS Dur : 104 ms QT Int : 396 ms P-R-T Axes : 047 048 036 degrees QTc Int : 454 ms Normal sinus rhythm Septal infarct (cited on or before 24-AUG-2020) Abnormal ECG When compared with ECG of 24-AUG-2020 06:16, T wave inversion now evident in Anterior leads ST elevation is less evident in anterior leads Confirmed by Wisam Chirinos ([id number]) on 04/06/2021 6:02:48 PM Referred By: REFERRED SELF Confirmed By:Wisam Chirinos
--- NOTE | 2021-04-06 18:08 | Billing Data ---
Date of Service April 06, 2021 Coding Level of Care Code 91125 Subseq Hosp Care Lvl 3
[2021-04-06] MEDS ORDERED: GABAPENTIN 600 MG TAB PO SCH (20:30)
[2021-04-07] MEDS ORDERED: GABAPENTIN 600 MG TAB PO SCH
[2021-04-07] MEDS ORDERED: LORazepam 3 MG/6 ML VIAL IV PRN (01:55)
[2021-04-07 05:52] LABS: Alanine Aminotransferase 93 U/L (12-78); Albumin Level 3.4 gm/dl (3.4-5.0); Aspartate Aminotransferase 166 U/L (15-37); BUN Creatinine Ratio 20.9 (10-20); Bilirubin,Total 1.5 mg/dl (0.2-1); Blood Urea Nitrogen 8 mg/dl (7-18); Calcium 8.8 mg/dl (8.5-10.1); Carbon Dioxide 29 mmol/L (21-32); Chloride 99 mmol/L (98-107); Creatinine Clr Calc Pharmacy 262.7 ml/min; Est GFR (African American) > 150.0 ml/min; Est GFR (Non-African American) > 150.0 ml/min; Glucose 95 mg/dl (70-99); Magnesium 1.8 mg/dl (1.8-2.4); Potassium 3.2 mmol/L (3.5-5.1); Sodium 134 mmol/L (136-145)
[2021-04-07 05:54] LABS: Albumin Globulin Ratio 0.9 (0.9-2); Alkaline Phosphatase 118 U/L (45-117); Globulin 3.9 gm/dl (2.5-4.0); Phosphorus 3.1 mg/dl (2.5-4.9); Total Protein 7.3 gm/dl (6.4-8.2)
[2021-04-07 06:09] LABS: Basophils # (auto) 0.05 K/uL (0-0.2); Eosinophils # (auto) 0.09 K/uL (0-0.5); Eosinophils % (auto) 1.8 %; Hematocrit (blood only) 45.8 % (42-52); Hemoglobin 15.4 g/dL (14.0-18.0); Immature Granulocytes # (auto) 0.01 K/uL (0.00-0.02); Immature Granulocytes % (auto) 0.2 %; Lymphocytes # (auto) 0.94 K/uL (1.2-3.4); Mean Corpuscular Hemoglobin 30.9 pg (25-34); Mean Corpuscular Hgb Conc 33.6 g/dL (32-36); Mean Platelet Volume 11.4 fL (7.4-10.4); Monocytes # (auto) 0.26 K/uL (0.11-0.59); Monocytes % (auto) 5.2 %; Neutrophils # (auto) 3.61 K/uL (1.4-6.5); Neutrophils % (auto) 72.8 %; Platelet Count 23 K/uL (130-400); Platelet Estimate SIGNIFIC DECREASED (Normal); RDW Coefficient of Variation 14.3 % (11.5-14.5); RDW Standard Deviation 48.3 fL (36.4-46.3); Red Blood Count 4.98 M/uL (4.7-6.1); White Blood Count 4.96 K/uL (4.8-10.8)
[2021-04-07] MEDS: chlordiazePOXIDE HCl 25 MG CAP PO SCH ×3 (06:24→20:45)
[2021-04-07] MEDS ORDERED: POTASSIUM CHLORIDE CRTAB 20 MEQ TABCR PO ONE (06:31)
[2021-04-07] MEDS ORDERED: POTASSIUM CHLORIDE CRTAB 20 MEQ TABCR PO STA (07:42)
[2021-04-07] MEDS: FOLIC ACID 1 MG TAB PO SCH (08:22)
[2021-04-07] MEDS: MAGNESIUM SULFATE / D5W 1 GM/100 ML BAG IV SCH ×2 (08:22→11:21)
[2021-04-07] MEDS: lisinopril 10 MG TAB PO SCH (08:23)
[2021-04-07] MEDS: THIAMINE HCL 100 MG TAB PO SCH (08:23)
[2021-04-07] MEDS: BUPRENORPHINE/NALOXONE 8/2 MG TAB SL SCH ×2 (08:24→20:45)
--- NOTE | 2021-04-07 08:55 | Critical Care Progress Note ---
Date of Service April 07, 2021 Assessment & Plan (1) Alcohol withdrawal syndrome: Plan: Reason Critically Ill: 40 y/o male w/ PMHx of alcohol use disorder who presented to [facility] on 04/04 for alcohol withdrawal syndrome, transferred to PCU on 04/05 for DT, admitted to ICU on 04/06 for concerns of respiratory depression and somnolence. Neuro - [facility] ICU: negative alcohol withdrawal syndrome, in setting of chronic heavy alcohol use - chronic alcohol use supported by patient hx, chart review, and labs. urine etoh 472 on 04/04 - hx of alcohol withdrawal seizures in past - possible delirium tremens on 04/05/21 AM w/ agitation and associated vitals - continue checking withdrawal scales per AWSS protocol, but hold AWSS protocol ativan; concern for oversedation given somnolence at time of ICU admission and recent medications (see above). Patient had also received 50 mg chlordiazepoxide PO and phenobarb 130 mg IV on 04/05/21 late AM. Long duration of action of phenobarb noted. -Patient had also trialed Librium and gabapentin earlier in this admission. Considered Precedex, but did not need. - 3 mg IV Ativan q8h PRN increased to q6h PRN. Librium increased from 25 mg PO q12 to q6 scheduled - YVES 6-8 (moderate) during day shift 04/07 - consider acamprosate for treating alcohol use disorder. would not be candidate for naltrexone because on suboxone. prior use of disulfiram as outpatient unsuccessful - IV Zofran as needed - continue thiamine and folate substance used disorder, opiates and benzodiazepines - chronic use of suboxone, continue home regimen suboxone 1 tab 8mg/2mg SL BID Cardiac - - ecg reviewed. qtc not prolonged tachycardia, intermittent, mild - mostly 80s, will have periods near 100, 2/2 alcohol withdrawal - continue telemetry Respiratory - hypoxia, consider v/q mismatch - saturating ~88-90 on room air, refused to wear supp O2. w/ 6L, saturating 97-98, attempted to wean - breathing appears shallow - monitor continuous pulse O2 and ETCO2. replaced probe - ordered Flonase and Mucinex for nasal congestion - ordered cxr. negative. no infiltrate or atelectasis - ordered d dimer. positive at 1550. - ordered CTA. negative for PE. +possible bronchitis, but this would not cause hypoxia - patient saturating 89-92 on room air while supine. considered orthodexia, lower suspicion of - ordered TTE w/ bubble study to r/o congenital heart defect such as ASD. - it is possible patient's symptoms are related to pulmonary vasodilation from liver disease GI - - regular diet transaminitis - likely chronic. AST/ALT ratio consistent w/ chronic etoh use - monitor CMP elevated lipase 597 - likely secondary to chronic alcohol use - lower suspicion for acute pancreatitis at this time RENAL/LYTES - hyponatremia 134 (stable), hypokalemia 3.2 - repleted potassium w/ 40 meq PO - repleted w/ 2g of IV MgSO4. Mg 1.8 - - voiding spontaneously, 24 hours 1.6L in 2.1L out ENDO - - no hx of DM or thyroid conditions HEME - thrombocytopenia - chronic, 40s since 08/2020 - likely 2/2 bone marrow suppression vs liver disease (less likely explains the severity) from chronic etoh - slight downtrend this admission, currently at 23 - smear w/o myelofibrosis. + significantly decreased platelets. no schistocytes noted, less likely ITP/TTP - consider outpatient hematology workup to search for other causes besides etoh - not anemic and iron/ferritin are elevated - follow daily CBC leukopenia, improved - likely chronic 2/2 bone marrow suppression ID - - no concerns for infection - temp of 38C at 2018 on 04/05/21 likely in setting of etoh withdrawal sympathetic response - possibly had delirium tremens earlier in day 04/05/21 LINES/IV ACCESS - PIVs intact DVT PROPHYLAXIS - SCDs, no chemical ppx DISPO - ICU. Continued discussions between patient and primary team and case management (2) Admitted to intensive care unit: (3) Leukopenia: (4) Thrombocytopenia: (5) Hypomagnesemia: (6) History of substance abuse: (7) Tobacco abuse: (8) Alcohol intoxication: (9) Transaminitis: (10) Elevated lipase: (11) Tachycardia: (12) Hypoxia: Admission and Anticipated Discharge Date Admission Date: April 04, 2021 Supervising Physician Co-Signing Physician Notes Dr. Vizcaino was the resident-physician during care of patient. I separately evaluated patient for olivera portions of the history and the exam. I was present during the critical portion of medical decision making, and I discussed the case with the resident. I generally agree with the findings and plan except for any additions/exceptions noted. 40-year-old male past medical history of heavy alcohol use was admitted to the hospital on 04/04/2021 because of agitation unsteadiness and dark urine. Patient initial alcohol level was 472 which was on 04/04. He had been getting Ativan and phenobarbital on the floor Patient seen and examined at bedside. Overnight patient got 5 mg of Ativan. He has been having episodes where he gets hypoxic. He denies any chest pain, no headache, no nausea, no vomiting. Constitutional: No acute distress HEENT: EOMI, PERRLA Respiratory system: Good air entry bilaterally, no wheeze, no rhonchi, no crac kles CVS: S1-S2 positive, no murmurs or gallops Abdomen: Soft, nontender, nondistended, positive bowel sounds x4 Extremities: +2 pulses bilaterally radialis/ dorsalis pedis, no cyanosis, no edema Neuro: Awake alert oriented to self and place Psych: Normal mood and affect G/U: No [place] --Prophylaxis VTE: IPC's GI: None Lines: Peripheral Diet: Regular Plan: In/out: Negative for 63, urine output 2100 Increase Librium to 25 mg every 6 hours Continue with CIWA protocol Continue with folic acid and thiamine. Hypokalemia being replaced Patient has been having issues with hypoxia. D-dimer was ordered which was found to be elevated. CTA was ordered which was negative for PE, no pleural effusion, no atelectasis, no infiltrate. The reason for patient's hypoxia could be hepatopulmonary versus cardiac Order 2D echo with bubble study to make sure there is no shunt. I have personally spent 35 minutes of critical care time in the direct management of this patient. This is a life/limb threatening event. This inclu igor time spent evaluating patient, direct bedside care, chart review, placing orders, interpretation of diagnostic studies, discussion with consultants, patient, and/or family members regarding treatment decisions, as well as other required patient management activities. This time is exclusive of all separately billable procedures, and teaching time and separate from and in addition to any other critical care service time. Subjective Patient states his symptoms are improved other mild tremors. He denies nausea, confusion, pain, or shortness of breath. +nasal and throat congestion, but is unable to bring up phlegm. Overnight, patient removed clothing and supp O2 and requested to leave. He is agreeing to continued care for now, but expressed that he feels he would do fine just sitting at home and that he already knows of outpatient rehab places. Review of Systems Review of Systems: Constitutional: Denies fever, chills Eyes: Denies blurry vision. Cardiovascular: Denies chest pain or palpitations Respiratory: Denies shortness of breath Gastrointestinal: Denies abdominal pain, nausea, or vomiting. Genitourinary: Denies urinary symptoms including dysuria Musculoskeletal: Denies weakness. Neurological: Denies headache Physical Exam Physical Exam: General: A&Ox4 to person, place, time, and context. NAD. Cooperative. Fully awake. HEENT: Atraumatic, normocephalic. PERRL. Pulm: CTAB. -wheezes, -rales, -rhonchi. Symmetrical chest rise. No respiratory distress. Shallow breathing. Cardiac: RRR, -mrg. Radial pulses intact and symmetrical. No LE edema. Abdominal: Nontender, nondistended, soft. Neuro: Moving all extremities. Mild bilateral hand tremor. Psych: Denies visual or auditory hallucinations. Results & Data Results & Data ([facility]) Vital Signs (Past 12 Hours) Vital Signs Pulse BP Pulse Ox Pulse Ox 04/07/21 02:35 67 146/109 H 93 04/07/21 01:35 74 145/106 H 89 L 04/07/21 00:36 75 148/108 H 87 L 04/06/21 23:35 75 141/106 H 04/06/21 23:00 94 04/06/21 22:35 65 151/112 H 93 04/06/21 21:35 82 150/109 H 94 04/07/21 05:00 04/07/21 05:00 Diagnostic Findings 04/07/21 CTA IMPRESSION: No definite central pulmonary embolus is seen. No secondary signs of pulmonary embolus. Evaluation of peripheral branches of pulmonary artery is limited due to motion artifact. No large infiltrates or consolidative lesions are seen. No pleural effusion. Possible bronchitis. Hepatic steatosis. Hepatomegaly. Resident Activity Tracking Resident Involvement: Resident Care Provided Care Provided: Adult Hospital Medicine (1) Alcohol withdrawal syndrome Complication of substance-induced condition: uncomplicated Qualified Code(s): F10.230 - Alcohol dependence with withdrawal, uncomplicated
[2021-04-07] MEDS: POTASSIUM CHLORIDE / WTR 10 MEQ/100 ML PLCT IV SCH (10:50)
--- NOTE | 2021-04-07 11:09 | XRay Report ---
XR chest 1V portable CLINICAL HISTORY: hypoxia COMPARISON STUDY: April 04, 2021 FINDINGS: No pneumothorax. No pleural effusion. No large infiltrates or consolidative lesions are seen. Cardiomediastinal silhouette is within normal limits in size. No significant pulmonary vascular congestion.. Osseous structures: unremarkable IMPRESSION: 1. No acute pulmonary process. ACT 112: Negative or not required by law. The above report was generated using voice recognition software. It may contain grammatical, syntax o r spelling errors. Electronically signed by: Dannielle Mcneill DO 04/07/2021 11:08 AM
[2021-04-07] MEDS: FLUTICASONE PROPIONATE NA SPR 16 GM BTL NAE SCH (11:22)
[2021-04-07] MEDS: guaiFENesin 600 MG TABCR PO SCH ×2 (11:22→20:45)
[2021-04-07 13:00] LABS: D Dimer 1550 ug/L FEU (0-500)
[2021-04-07] MEDS ORDERED: OPTIRAY 320 125ml IV ONE (13:23)
--- NOTE | 2021-04-07 13:58 | Hospitalist Progress Note ---
Date of Service April 07, 2021 Assessment & Plan (1) Alcohol withdrawal syndrome: Plan: Hemodynamically stable, in ICU. Per ICU: -Ativan 3 mg Q6 PRN -Librium 25mg Q6 JEAN CARLOS -IV Zofran PRN -thiamine and folate (2) Hypoxia: Plan: -pt satted to 87 on room air, initially refused to wear 2L nasal cannula -now on 6L NC, will wean later -CXR negative for atelectasis -D-dimer positive (1550), CTA ordered -requested respiratory therapist evaluation (3) Pneumonia: Plan: -Flonase, mucinex ordered for congestion (4) History of substance abuse: Admission and Anticipated Discharge Date Admission Date: April 04, 2021 Supervising Physician Co-Signing Physician Notes I personally examined the patient and verified all olivera points of history and exam, discussed case, and agree with decision making with Dr Amezquita. Generally feeling better. Less shaky, less anxious, head feels more clear. Overall notes improvement. Vitals noted, in general awake and alert pleasant no distress. HEENT nor mocephalic atraumatic mucous membranes moist. Breathing unlabored no accessory muscle use good effort. Skin shows no rashes no pallor or icterus. Mild tremor with movementsfar improved. Mental status shows good recent and remote recall, good judgment and insight. Skin shows no rashes no pallor or icterus. Alcohol abuse/withdrawalwith alcoholic hepatitis/transaminitis, and pancytopeniamost likely marrow suppression/cytotoxicity, continue symptom triggered therapy and supportive care. Clinically appears to be improving. Started to discuss long-term treatmentmanagement of substance abuse, but also management of stress/adding other coping skills so that when life stressors occur he has more than alcohol to fall back on. Otherwise as above. Subjective Pt. was resting comfortably in bed this morning. He states that his symptoms have improved since yesterday and thought about going home yesterday. He reports feeling congested this morning. Otherwise, he denies nausea, chest pain, or SOB. Review of Systems Review of Systems: See HPI Physical Exam Constitutional: Mild tremors appreciable in hands and feet, otherwise in NAD Respiratory: + cough Auscultation: lungs clear to auscultation bilaterally Cardiovascular: RRR, no murmur, no edema Results & Data Results & Data ([facility]) Vital Signs (Past 12 Hours) Vital Signs Pulse Pulse Resp BP Pulse Ox 08/07/21 08:45 90 16 91 04/07/21 02:35 67 146/109 H 93 04/07/21 01:35 74 145/106 H 89 L 04/07/21 00:36 75 148/108 H 87 L Resident Activity Tracking Resident Involvement: Resident Care Provided Care Provided: Adult Hospital Medicine (1) Alcohol withdrawal syndrome Complication of substance-induced condition: uncomplicated Qualified Code(s): F10.230 - Alcohol dependence with withdrawal, uncomplicated (2) Pneumonia Laterality: left Lung location: lower lobe of lung Pneumonia type: due to unspecified organism Qualified Code(s): J18.9 - Pneumonia, unspecified organism
--- NOTE | 2021-04-07 14:07 | CT Scan Report ---
CT angio chest w con CT DOSE: 329.52 mGy.cm CLINICAL HISTORY: r/o PE TECHNIQUE: A dose lowering technique was utilized adhering to the principles of ALARA. COMPARISON STUDY: August 22, 2020 FINDINGS: There is adequate opacification within main pulmonary artery. No definite central pulmonary embolus is seen. Evaluation of peripheral branches of the pulmonary art jt within bilateral lower lobes is significantly limited due to motion artifact. Main pulmonary artery is within upper limits of normal. There is no right heart strain seen. There is mild four-chamber cardiomegaly seen. No pericardial effusion demonstrated. No significant co ronary calcifications are seen. There is no axillary, supra clavicle or internal mammary lymphadenopathy seen. Multiple mediastinal l ymph nodes are seen and measure less than 1 cm in short axis which is nonpathological by CT size crit eria. Small calcification within nonenlarged subcarinal lymph node is seen. Tracheobronchial tree is patent. Possible atelectasis at dependent portions of bilateral lower lobes. No large infiltrates or consolidative lesions are seen. Mild diffuse thickening of bronchial ramirez are seen bilaterally which could be seen in bronchitis. Overall evaluation of pulmonary parenchyma is limited due to significant motion artifact. No definite pleural effusion is seen. Limited evaluation of upper abdominal viscera shows hepatomegaly and hepatic steatosis. Osseous structures: Minimal degenerative changes of the spine. IMPRESSION: No definite central pulmonary embolus is seen. No secondary signs of pulmonary embolus. Evaluation of peripheral branches of pulmonary artery is limited due to motion artifact. No large infiltrates or consolidative lesions are seen. No pleural effusion. Possible bronchitis. Hepatic steatosis. Hepatomegaly. The rest of findings as above. ACT 112: Negative or not required by law. The above report was generated using voice recognition software. It may contain grammatical, syntax o r spelling errors. Electronically signed by: Dannielle Mcneill DO 04/07/2021 2:06 PM
[2021-04-07] MEDS ORDERED: chlordiazePOXIDE HCl 25 MG CAP PO SCH (16:30)
--- NOTE | 2021-04-07 18:27 | Billing Data ---
Date of Service April 07, 2021 Coding Level of Care Code 91952 Subseq Hosp Care Lvl 2
--- NOTE | 2021-04-07 19:22 | Billing Data ---
Date of Service April 07, 2021 Coding Level of Care Code Critical Care 1st 30-74 mins Time Spent (min) 35
[2021-04-07] MEDS: IBUPROFEN 600 MG TAB PO PRN (22:36)
[2021-04-07] MEDS ORDERED: MELATONIN 3 MG TAB PO PRN (23:31)
[2021-04-08] MEDS: chlordiazePOXIDE HCl 25 MG CAP PO SCH ×2 (02:50→08:07)
[2021-04-08] MEDS ORDERED: LORazepam 1 MG TAB PO STA (04:15)
[2021-04-08 05:55] LABS: Mean Corpuscular Hgb Conc 33.1 g/dL (32-36)
[2021-04-08 06:22] LABS: Hematocrit (blood only) 43.5 % (42-52); Hemoglobin 14.4 g/dL (14.0-18.0); Mean Corpuscular Hemoglobin 30.6 pg (25-34); Mean Corpuscular Volume 92.4 fL (80-100); RDW Standard Deviation 47.3 fL (36.4-46.3); Red Blood Count 4.71 M/uL (4.7-6.1); White Blood Count 3.63 K/uL (4.8-10.8)
[2021-04-08 06:28] LABS: Alanine Aminotransferase 79 U/L (12-78); Albumin Level 3.3 gm/dl (3.4-5.0); Aspartate Aminotransferase 102 U/L (15-37); BUN Creatinine Ratio 17.2 (10-20); Blood Urea Nitrogen 7 mg/dl (7-18); Calcium 8.7 mg/dl (8.5-10.1); Carbon Dioxide 29 mmol/L (21-32); Chloride 102 mmol/L (98-107); Creatinine Clr Calc Pharmacy 249.3 ml/min; Est GFR (African American) > 150.0 ml/min; Est GFR (Non-African American) 149.1 ml/min; Glucose 106 mg/dl (70-99); Magnesium 1.8 mg/dl (1.8-2.4); Potassium 3.4 mmol/L (3.5-5.1); Sodium 136 mmol/L (136-145)
[2021-04-08 06:29] LABS: Platelet Count 30 K/uL (130-400)
[2021-04-08 06:30] LABS: Basophils # (auto) 0.02 K/uL (0-0.2); Basophils % (auto) 0.6 %; Eosinophils % (auto) 2.8 %; Immature Granulocytes # (auto) 0.02 K/uL (0.00-0.02); Immature Granulocytes % (auto) 0.6 %; Lymphocytes # (auto) 0.96 K/uL (1.2-3.4); Lymphocytes % (auto) 26.4 %; Monocytes # (auto) 0.39 K/uL (0.11-0.59); Monocytes % (auto) 10.7 %; Neutrophils # (auto) 2.14 K/uL (1.4-6.5); Neutrophils % (auto) 58.9 %; Platelet Estimate SIGNIFIC DECREASED (Normal)
[2021-04-08 06:40] LABS: Albumin Globulin Ratio 0.9 (0.9-2); Alkaline Phosphatase 117 U/L (45-117); Bilirubin,Total 1.3 mg/dl (0.2-1); Globulin 3.7 gm/dl (2.5-4.0); Phosphorus 3.9 mg/dl (2.5-4.9)
[2021-04-08] MEDS: BUPRENORPHINE/NALOXONE 8/2 MG TAB SL SCH (08:07)
[2021-04-08] MEDS: FLUTICASONE PROPIONATE NA SPR 16 GM BTL NAE SCH (08:10)
[2021-04-08] MEDS: guaiFENesin 600 MG TABCR PO SCH (08:10)
[2021-04-08] MEDS: FOLIC ACID 1 MG TAB PO SCH (08:10)
[2021-04-08] MEDS: THIAMINE HCL 100 MG TAB PO SCH (08:10)
[2021-04-08] MEDS: lisinopril 10 MG TAB PO SCH (08:11)
[2021-04-08] MEDS ORDERED: GABAPENTIN 600 MG TAB PO SCH ×2 (08:30→12:00)
[2021-04-08] MEDS ORDERED: chlordiazePOXIDE HCl 25 MG CAP PO STA (08:43)
[2021-04-08] MEDS ORDERED: NICOTINE 14 MG/24 HR PATCH TD SCH (09:00)
--- NOTE | 2021-04-08 09:10 | XCELERA ---
[id number]
--- NOTE | 2021-04-08 09:35 | Hospitalist Progress Note ---
Date of Service April 08, 2021 Assessment & Plan (1) Alcohol withdrawal syndrome: Plan: Stable, improving. -pt wanted to leave this AM and appeared stable enough to -received 50 mg Librium before leaving, given recurring early-morning agitative episodes (2) Hypoxia: Plan: Resolved, transferred out of the ICU last night -CTA negative for embolus (3) Alcohol use disorder: Plan: Chronic -pt stated to nurse this AM that he plans on going to AA, versus inpatient rehab. Did not discuss outpatient plans with him as he was eager to leave AMA this morning. Admission and Anticipated Discharge Date Admission Date: April 04, 2021 Subjective Pt. was transferred out of ICU overnight. Per the overnight hospitalist, he grew agitated this morning around 3 AM, pacing his room and asking to leave. He was redirected by nursing staff and received 2 mg Ativan, which calmed him. This morning, he was up and packing his belongings and stated repeatedly that he was ready to leave as he was "over the hill." He admitted to being mildly anxious upon my entry into the room this morning but was otherwise placid. He denied headache, fatigue, dizziness, SOB, chest pain, nausea, or vomiting. Review of Systems Review of Systems: See HPI Constitutional: as per Subjective / HPI Physical Exam Physical Exam: Mildly tremulous, mildly anxious man in no acute distress Respiratory: normal respiratory effort, lungs clear to auscultation Cardiovascular: RRR, no murmur, no edema Psychiatric: Orientation: alert, oriented x 3 and cooperative Apperance: appropriately dressed Eye Contact: good eye contact Motor Behavior: + tremor Results & Data Results & Data ([facility]) Vital Signs (Past 12 Hours) Vital Signs Temp Pulse Pulse Resp BP Pulse Ox Pulse Ox 04/08/21 08:59 36.9 C 66 18 134/97 95 04/08/21 05:02 66 04/08/21 04:07 36.9 C 66 18 140/93 95 04/07/21 23:16 37.2 C 70 18 146/91 H 93 04/07/21 23:00 93 Resident Activity Tracking Resident Involvement: Resident Care Provided Care Provided: Adult Hospital Medicine (1) Alcohol withdrawal syndrome Complication of substance-induced condition: uncomplicated Qualified Code(s): F10.230 - Alcohol dependence with withdrawal, uncomplicated
--- NOTE | 2021-04-08 16:28 | Discharge Summary ---
Date of Service April 08, 2021 Admission HPI Per Admitting Provider Mr. Goldstein is a 40 yo gentleman with a history of alcohol use disorder who was brought in to the ED by his mother for evaluation of agitation, unsteadiness, and dark urine. He has been admitted to [facility] multiple times in the past for management of alcohol withdrawal. He has a history of alcohol withdrawal seizures. He has been to inpatient alcohol rehab 3 times in the past several years. He is interested in going to inpatient alcohol rehab following this admission. His mother states he is trying to get away from hard liquor - but he is currently drinking a 1/2 gallon of vodka daily. His last drink was today at 7am. He denies any nausea or vomiting. He does report left flank pain - denies any recent falls/injuries. He denies any dysuria, burning. Of note, he was a history of narcotic and benzo missuse in the past. He was on Suboxone for many years - dose of 2, 8mg films. He ran out two days ago - he still gets his prescription from a clinic in the [place] area despite the fact that he has lived in [place] for the past 4 yeas. He admits to not being compliant everyday with it - he has been intentionally spacing the script out to 'make it last.' In the ED, he was febrile with normal HR and BP. His WBC was low at 2.33. ANC was 780.His hgb was normal, MCV was 92; platelets were low at 45k. His electrolytes were WNL. His ALT was elevated to 122, AST to 306. Alk phos elevated to 128. COVID neg. CXR showed no active disease. He was given a banana bag x1, 2mg IV Ativan, and started on a gabapentin taper. Principal Diagnosis Alcohol withdrawal Discharge Exam In general he is awake and alert, oriented, pleasant no distress. Mildly shaky. HEENT normocephalic atraumatic mucous membranes moist. Breathing unlabored no accessory muscle use good effort. Skin shows no rashes no pallor or icterus. Neuro shows him to be far less tremulous than before. Mental shows him to have reasonable judgment and insight. Discharge Data Allergies Allergy/AdvReac Type Severity Reaction Status Date / Time No Known Allergies Allergy Unverified 04/04/21 21:07 Consultations 04/04/21 21:20 ED Decision to Admit Stat Ordered Studies 04/07/21 13:03 CT angio chest w con Urgent Hospital Course (1) Alcohol use disorder: Admitted with alcohol withdrawalhad fairly severe withdrawal requiring large doses of symptom triggered benzodiazepines, as well as several doses of phenobarbital. He spent about a day and a half in the ICU, but fortunately never needed intubated or never needed a Precedex drip. Over the last day or so his symptoms started to recede, and he became safe/stable for discharge to home. -We discussed the root cause of his drinking, and it seemed that he had significant life stressors where he recalled that approximately 23 separate friends (it sounds like predominantly from drug related and overdose related illnesses) in a very short period of time. -Offered empathy and support, also discussed the dire need for other coping mechanisms for life stressors, so that when future stressors occur, he has "tools in his toolbox" besides alcohol to turn to. -Stable for home, continue thiamine and folate, seems to plan on abstinence. For clarification sake he did have a bit of an elevated lipase, never really looked like pancreatitis clinically, probably does have a degree of chronic pancreatitis from the alcohol abuse, but nothing that seemed to reach clinical significance. Total Time Total Time Spent Total Time Spent (In Minutes): <30 Discharge Plan Discharge Items Patient Disposition: Home - Self-Care Reason For Visit: ALCOHOL WITHDRAWAL Discharge Diagnosis: Alcohol Withdrawal Activity: Per Instructions section Non-emergency contact: Primary Care Provider Call non-emergency contact if: your symptoms worsen Follow-up/Referrals: Hemant García, [Primary Care Provider] - Diet: Regular Addtl Attending Provider Instructions: You were admitted to the hospital because of severe alcohol withdrawal. During your stay, we were concerned about your breathing so you were transferred to the ICU. Your symptoms improved and you were transferred out of the ICU. You were given Librium a long-acting benzodiazepine, to manage your withdrawal symptoms. You were also given Ativan, a short-acting benzodiazepine, to manage your anxiety and agitation. If your agitation and anxiety symptoms return, please reach out to your PCP, or go to the emergency room. It looks like you take disulfram at home. Please do not take that if you plan to drink heavily. Please speak to your doctor about the risks and precautions before taking Naltrexone. It has been our pleasure to care for you here at [facility]. Pending Studies at Discharge: No Stand-Alone Forms: [facility], Smoking Cessation Medications and DC Order Prescriptions: Continued buprenorphine-naloxone 8-2 mg film 1 film sublingual BID RF: 0 disulfiram 250 mg tablet 250 mg PO UD RF: 0 lisinopril 10 mg tablet 10 mg PO DAILY RF: 0 Discharge Orders: Discharge Order (Routine); Ordered 04/08/21 Ordered By: Raquel Amezquita Admission Data Admit Date/Time: 04/04/21 22:27 Attending Provider: Gary Schumacher Admit Provider: Lizz Kendrick Primary Care Provider: Hemant García Other Providers: Phillip Zaman Other Interventions: Discharge Summary Assessment (RN) Last Done: 04/08/21 08:59 Coding Level of Care Code D/C DAY MANAGEMENT <30 MINS Diagnoses Alcohol use disorder
--- NOTE | 2021-04-17 17:39 | Coding Query ---
CODING QUERY To promote full compliance with coding requirements relating to patient care, provider participation is requested in all cases of help desk supervisor uncertainty. Please assist us with the question(s) below: Coding Question(s): Pt admitted with alcohol dependence and withdrawl. Progress note 04/07 documented Pneumonia - .Please check below the phrase that relates to the Pneumonia. Atelectasis was ruled out in paitent with hypoxia. Thanks for your help. Ashish Reeder [facility] Physician's Response(s): Patient was treated for pneumonia during this IP stay Patient was nnot treated for pneumonia during this IP stau Cannot clinically correlate if pneumonia was treated ____x Other: please document: initially of concern, but ongoing clinical evaluation ruled this out Principal Diagnosis: "that condition established after study, to be chiefly responsible for occasioning the admission of the patient to the hospital for care." Co-Existing Principal Diagnosis: "when two or more diagnoses equally meet the criteria for principal diagnosis as determined by the circumstances of admission, diagnostic work up, and/or therapy provided, and the Alphabetic Index, Tabular List, or another coding guideline does not provide sequencing direction, any one of the diagnoses may be sequenced first." "When the physician has documented what appears to be a current diagnosis in the body of the record, but has not included the diagnosis in the final diagnostic statement, the physician should be asked whether the diagnosis should be added." (Source [facility] 2 QTR90. p3-4) DONISD
== END 2021-04-08 09:21 | disposition home or self-care (01) | DRG 897 ==
LOC: ED 19:35 → SUATTDRO 22:27 → 2N 22:27 → 2E 04-05 09:59 → 1E 04-06 07:27 → 2E 04-07 20:10
DX: E87.6 Hypokalemia; E87.1 Hypo-osmolality and hyponatremia; F11.11 Opioid abuse, in remission; R09.02 Hypoxemia; E83.42 Hypomagnesemia; R00.0 Tachycardia, unspecified; F17.210 Nicotine dependence, cigarettes, uncomplicated; F19.21 Other psychoactive substance dependence, in remission; D61.818 Other pancytopenia; R74.01 Elevation of levels of liver transaminase levels; Z79.899 Other long term (current) drug therapy; F10.239 Alcohol dependence with withdrawal, unspecified; K70.10 Alcoholic hepatitis without ascites